=== PATIENT | male | born 1995 | race African-American/Black ===

== ENCOUNTER 2017-12-27 12:46 | Emergency (ER) | payer SELFPAY ==
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
[2017-12-27 15:18] VITALS: TEMP 98.1
[2017-12-27 15:19] VITALS: BP 99/88; O2SAT 99
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
== END 2017-12-27 15:13 | disposition home or self-care (01) ==
LOC: ER 12:46
DX: S00.83XA Contusion of other part of head, initial encounter (principal); S40.012A Contusion of left shoulder, initial encounter; Y04.0XXA Assault by unarmed brawl or fight, initial encounter; Y93.89 Activity, other specified; Y92.9 Unspecified place or not applicable; Y99.9 Unspecified external cause status
CPT/HCPCS: 70450; 72125; 99284

== ENCOUNTER 2018-04-10 17:35 | Emergency (ER) | payer SELFPAY ==
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
--- NOTE | 2018-04-10 18:57 | EDPHYS ---
Physician Documentation [facility] Name: Mauricio Carolina Age: 22 yrs Sex: Male : 1995 Arrival Date: 04/10/2018 Time: 17:39 Bed 18 Private MD: Unknown, Unknown ED Physician Hunter Biggs HPI: 04/10 18:46 This 22 yrs old Black Male presents to ER via Ambulatory with complaints of Passed Out kb Prior To Arrival. 18:46 The patient or guardian reports cough, that is intermittent, described as moderate, kb with no sputum, flu symptoms, low-grade fever. Onset: The symptoms/episode began/occurred yesterday. Severity of symptoms: At their worst the symptoms were moderate, in the emergency department the symptoms are unchanged. Modifying factors: The symptoms are alleviated by nothing, the symptoms are aggravated by nothing. Associated signs and symptoms: Pertinent positives: fever, rhinorrhea, sore throat, Pertinent negatives: chest pain, diarrhea, ear ache, nausea, vomiting. The patient has not experienced similar symptoms in the past. The patient has not recently seen a physician. pt reports fever, sore throat, runny nose, cough and congestion that started yesterday, worse today. Was coughing at work and felt like he was going to pass out so his boss told him to come to the ER. Historical: - Allergies: 17:41 NKA; la1 - PMHx: 17:41 None; la1 - Immunization history:: Adult Immunizations up to date. - Social history:: Smoking status: Patient uses tobacco products, smokes one pack cigarettes per day. - Ebola Screening: : No symptoms or risks identified at this time. ROS: 18:44 Cardiovascular: Negative for chest pain, palpitations, and edema, Abdomen/GI: Negative kb for abdominal pain, nausea, vomiting, diarrhea, and constipation, Back: Negative for injury and pain, : Negative for injury, bleeding, discharge, and swelling, MS/Extremity: Negative for injury and deformity, Skin: Negative for injury, rash, and discoloration, Neuro: Negative for headache, weakness, numbness, tingling, and seizure. 18:44 Constitutional: Positive for fever, malaise, Negative for body aches, chills, fatigue, poor PO intake, weight loss. 18:44 ENT: Positive for rhinorrhea, sinus congestion, sore throat. 18:44 Respiratory: Positive for cough, Negative for dyspnea on exertion, hemoptysis, orthopnea, pleurisy, shortness of breath, sputum production, wheezing. Exam: 18:44 Constitutional: This is a well developed, well nourished patient who is awake, alert, kb and in no acute distress. Head/Face: Normocephalic, atraumatic. Neck: Trachea midline, no thyromegaly or masses palpated, and no cervical lymphadenopathy. Supple, full range of motion without nuchal rigidity, or vertebral point tenderness. No Meningismus. Chest/axilla: Normal chest wall appearance and motion. Nontender with no deformity. No lesions are appreciated. Cardiovascular: Regular rate and rhythm with a normal S1 and S2. No gallops, murmurs, or rubs. Normal PMI, no JVD. No pulse deficits. Respiratory: Lungs have equal breath sounds bilaterally, clear to auscultation and percussion. No rales, rhonchi or wheezes noted. No increased work of breathing, no retractions or nasal flaring. Abdomen/GI: Soft, non-tender, with normal bowel sounds. No distension or tympany. No guarding or rebound. No evidence of tenderness throughout. Skin: Warm, dry with normal turgor. Normal color with no rashes, no lesions, and no evidence of cellulitis. MS/ Extremity: Pulses equal, no cyanosis. Neurovascular intact. Full, normal range of motion. Neuro: Awake and alert, GCS 15, oriented to person, place, time, and situation. Cranial nerves II-XII grossly intact. Motor strength 5/5 in all extremities. Sensory grossly intact. Cerebellar exam normal. Normal gait. 18:44 ENT: Posterior pharynx: Airway: normal, no evidence of obstruction, Tonsils: are normal in appearance, Uvula: normal, midline, swelling, is not appreciated, erythema, that is moderate, exudate, is not appreciated. Vital Signs: 17:42 BP 128 / 83; Pulse 91; Resp 16; Temp 98.0; Pulse Ox 98% on R/A; Weight 102.06 kg; la1 Height 5 ft. 11 in. (180.34 cm); 18:20 BP 125 / 78; Pulse 72; Resp 18; Pulse Ox 100% on R/A; Pain 7/10; em 17:42 Body Mass Index 31.38 (102.06 kg, 180.34 cm) la1 MDM: 17:45 Patient medically screened. kb 18:44 Data reviewed: vital signs, nurses notes. Data interpreted: Pulse oximetry: on room air kb is 98 %. Interpretation: normal. Counseling: I had a detailed discussion with the patient and/or guardian regarding: the historical points, exam findings, and any diagnostic results supporting the discharge/admit diagnosis, lab results, radiology results, the need for outpatient follow up, a family practitioner, to return to the emergency department if symptoms worsen or persist or if there are any questions or concerns that arise at home. 04/10 17:49 Order name: Flu; Complete Time: 18:33 kb 04/10 17:49 Order name: Strep; Complete Time: 18:15 kb 04/10 17:49 Order name: Chest Pa And Lat (2 Views) XRAY; Complete Time: 18:19 kb 04/10 18:15 Order name: Throat Culture EDMS Administered Medications: No medications were administered Disposition: 04/11 11:16 Co-signature as Attending Physician, Hunter Biggs MD. Disposition: 04/10/18 18:56 Discharged to Home. Impression: Acute upper respiratory infection, unspecified. - Condition is Stable. - Discharge Instructions: Upper Respiratory Infection, Adult, [id number]. - Medication Reconciliation Form, Thank You Letter, Antibiotic Education, Prescription Opioid Use, Work release form form. - Follow up: Emergency Department; When: As needed; Reason: Worsening of condition. Follow up: Private Physician; When: 2 - 3 days; Reason: Recheck today's complaints, Continuance of care, Re-evaluation by your physician. Signatures: Dispatcher [employer] EDMS Emily Rodriguez, GORGE OTOLARYNGOLOGY REP-Reuben De La Fuente, SWIFT TENDER SWIFT TENDER em Crow Kelley RN RN Hunter Matthews MD MD Corrections: (The following items were deleted from the chart) 04/10 19:07 18:56 04/10/2018 18:56 Discharged to Home. Impression: Acute upper respiratory em infection, unspecified. Condition is Stable. Forms are Medication Reconciliation Form, Thank You Letter, Antibiotic Education, Prescription Opioid Use. Follow up: Emergency Department; When: As needed; Reason: Worsening of condition. Follow up: Private Physician; When: 2 - 3 days; Reason: Recheck today's complaints, Continuance of care, Re-evaluation by your physician. kb
[2018-04-10 19:17] VITALS: TEMP 98
[2018-04-10 19:19] VITALS: BP 125/78; O2SAT 100
== END 2018-04-10 19:07 | disposition home or self-care (01) ==
LOC: ER 17:35
DX: J06.9 Acute upper respiratory infection, unspecified (principal); F17.210 Nicotine dependence, cigarettes, uncomplicated
CPT/HCPCS: 71046; 87070; 87081; 87804; 99283

== ENCOUNTER 2021-03-23 08:38 | Observation (INO) | payer SELFPAY ==
[2021-03-23 09:24] LABS: Absolute Lymphocytes (CBC) 2.7 K/uL (0.7-4.9); Basophils % 0.6 % (0-1.3); Hematocrit 41.7 % (39.6-49.0); Lymphocytes % 20.1 % (15.3-44.8); MPV 8.8 fL (7.6-11.3); RBC Red Blood Cell Count 4.87 M/uL (4.33-5.43)
[2021-03-23 09:34] LABS: BUN Blood Urea Nitrogen 10 mg/dL (7-18); Bicarbonate 28 mmol/L (21-32); Glucose Level 113 mg/dL (74-106); Potassium 3.8 mmol/L (3.5-5.1); Sodium Level 141 mmol/L (136-145)
--- NOTE | 2021-03-23 09:58 | RAD REPORT ---
EXAM DESCRIPTION: CT - Soft Tissue Neck W/Contr - 03/23/2021 9:25 am CLINICAL HISTORY: Peritonsillar swelling COMPARISON: Head C Spine Mpr Wo Con dated 12/27/2017 TECHNIQUE: During dynamic enhancement using 100 milliliters nonionic IV contrast, axial 5 millimeter thick images of the neck were obtained. All CT scans are performed using dose optimization technique as appropriate and may include automated exposure control or mA/KV adjustment according to patient size. FINDINGS: Limited intracranial exam is unremarkable. Mastoid air cells and partially visualized para nasal sinuses are clear. Mild thickening of the adenoid tissues present. There is a thickened, edemat ous soft palate. Bilateral tonsillar enlargement is present. In the deep lateral margin of the right tonsil there is a 17 millimeter by 13 millimeter abscess. No enhancing pharyngeal mass. Epiglottis is normal. No laryngeal abnormality seen. Patient has bilateral lymphadenopathy. Largest lymph node is present on the right measuring 3.9 x 2.5 cm. No necrotic lymph node. No cervical vertebral abnormality. No disc space narrowing. There is no retropharyngeal abscess or ab normal thickening of the prevertebral soft tissues. IMPRESSION: Bilateral tonsillitis pattern with a 17 x 13 mm right-side peritonsillar abscess. Overall thickening of the pharyngeal tissues with adenoid, bilateral tonsil and soft palate thickenin g. No retropharyngeal abscess. Bilateral reactive cervical lymphadenopathy.
[2021-03-23] MEDS ORDERED: CLINDAMYCIN 600MG/D5W 600 MG/50 ML BAG IV ONE (10:17)
[2021-03-23] MEDS ORDERED: NA CHLORIDE 0.9% 1,000 ML ONE (10:17)
[2021-03-23] MEDS ORDERED: KETOROLAC 30 MG/ML INJ ONE (10:17)
--- NOTE | 2021-03-23 11:16 | ER ---
Nurse's Notes [facility] Name: Mauricio Carolina Age: 25 yrs Sex: Male : 1995 Arrival Date: 03/23/2021 Time: 08:40 Bed 6 Private MD: Diagnosis: Peritonsillar abscess;Acute tonsillitis, unspecified Presentation: 03/23 08:43 Chief complaint: Patient states: "the right side of my neck has been swelling up for aa5 about a week and it's making it hard for me to breathe, the swelling goes up to my right ear and to the top of my mouth". Pt states "I was sick with flu symptoms, cough, congestion, sore throat before this started". 08:43 Coronavirus screen: congestion, cough unrelated to allergies, sore throat. Ebola aa5 Screen: No symptoms or risks identified at this time. Initial Sepsis Screen: Does the patient meet any 2 criteria? No. Patient's initial sepsis screen is negative. Does the patient have a suspected source of infection? No. Patient's initial sepsis screen is negative. Risk Assessment: Do you want to hurt yourself or someone else? Patient reports no desire to harm self or others. Onset of symptoms was February 2021. 08:43 Acuity: TRACY 3 aa5 08:43 Method Of Arrival: Ambulatory aa5 Historical: - Allergies: 08:54 NKA; aa5 - PMHx: 08:54 None; aa5 - PSHx: 08:54 None; aa5 - Immunization history:: Client reports having NOT received the Covid vaccine. - Social history:: Smoking status: Patient reports the use of cigarette tobacco products, smokes one pack cigarettes per day. Screenin:55 Abuse screen: Denies threats or abuse. Nutritional screening: No deficits noted. aa5 Tuberculosis screening: No symptoms or risk factors identified. Fall Risk None identified. Assessment: 08:55 General: Appears uncomfortable, Behavior is calm, cooperative. Pain: Complains of pain aa5 in right side of throat, right side of neck. Neuro: Level of Consciousness is awake, alert, obeys commands, Oriented to person, place, time, situation. Cardiovascular: Patient's skin is warm and dry. Respiratory: Reports cough/congestion Airway is patent Respiratory effort is even, unlabored, Respiratory pattern is regular, symmetrical. GI: Abdomen is round non-distended. : No signs and/or symptoms were reported regarding the genitourinary system. EENT: Reports nasal congestion pain to right side of throat . Derm: Skin is dry, Skin is normal, Skin temperature is warm. Musculoskeletal: Range of motion: intact in all extremities. 09:15 Reassessment: Pt to CT via wheelchair . aa5 09:35 Reassessment: Pt back from CT scan . Neuro: Level of Consciousness is awake, alert, aa5 obeys commands, Oriented to person, place, time, situation. Respiratory: Airway is patent Respiratory effort is even, unlabored, Respiratory pattern is regular, symmetrical. Derm: Skin is dry, Skin is normal, Skin temperature is warm. 10:41 General: Appears comfortable. Neuro: Level of Consciousness is awake, alert, obeys aa5 commands, Oriented to person, place, time, situation. Respiratory: Airway is patent Respiratory effort is even, unlabored, Respiratory pattern is regular, symmetrical. Derm: Skin is dry, Skin is normal, Skin temperature is warm. 11:36 Reassessment: No changes from previously documented assessment. Patient and/or family bp updated on plan of care and expected duration. Pain level reassessed. ADMIT INITIATED FOR PERITONSILLAR ABSCESS. PT SEEN BY ENT. 12:38 Neuro: Level of Consciousness is awake, alert, obeys commands, Oriented to person, aa5 place, time, situation. Respiratory: Airway is patent Respiratory effort is even, unlabored, Respiratory pattern is regular, symmetrical. Derm: Skin is dry, Skin is normal, Skin temperature is warm. Vital Signs: 08:43 BP 141 / 95; Pulse 77; Resp 18 S; Temp 98.9(O); Pulse Ox 99% on R/A; Weight 106.59 kg aa5 (R); Height 5 ft. 11 in. (180.34 cm) (R); 10:01 BP 115 / 71; Pulse 65; Resp 18 S; Pulse Ox 100% on R/A; aa5 11:00 BP 111 / 47; Pulse 61; Resp 17; Pulse Ox 100% ; bp 08:43 Body Mass Index 32.78 (106.59 kg, 180.34 cm) aa5 ED Course: 08:40 Patient arrived in ED. as 08:43 Arm band placed on Patient placed in an exam room, on a stretcher. aa5 08:43 Patient has correct armband on for positive identification. Bed in low position. Call aa5 light in reach. Side rails up X 1. Adult w/ patient. 08:43 Pulse ox on. NIBP on. aa5 08:45 Denis Jimenez MD is Attending Physician. kdr 08:52 Marta Arvizu, RN is Primary Nurse. aa5 08:54 Triage completed. aa5 09:11 Initial lab(s) drawn, by al, sent to lab. Inserted saline lock: 20 gauge in right aa5 antecubital area, using aseptic technique. Blood collected. 09:25 CT Soft Tissue Neck W/contr In Process Unspecified. EDMS 09:43 COVID swab sent to lab. aa5 11:14 Adia Ken MD is Hospitalizing Provider. kdr 11:36 Throat Culture Sent. bp 12:39 No provider procedures requiring assistance completed. Patient admitted, IV remains in aa5 place. Administered Medications: 09:42 Drug: NS 0.9% 1000 ml Route: IV; Rate: 1 bolus; Site: right antecubital; aa5 10:41 Follow up: IV Status: Completed infusion; IV Intake: 1000ml aa5 09:43 Drug: Clindamycin 600 mg Route: IVPB; Infused Over: 30 mins; Site: right antecubital; aa5 10:15 Follow up: Response: No adverse reaction; IV Status: Completed infusion aa5 09:43 Drug: Ketorolac 15 mg Route: IVP; Site: right antecubital; aa5 10:00 Follow up: Response: No adverse reaction aa5 Intake: 10:41 IV: 1000ml; Total: 1000ml. aa5 Outcome: 11:15 Decision to Hospitalize by Provider. kdr 12:38 Admitted to Med/surg accompanied by tech, via wheelchair, with chart, Report called to aa5 DONNY Andrade 12:38 Condition: stable 12:38 Instructed on the need for admit, Demonstrated understanding of instructions. 12:49 Patient left the ED. aa5 Signatures: Dispatcher [employer] EDOR Denis Jimenez MD MD kdr Elizabeth Angel as Marta Arvizu, RN RN aa5 Jovanni Etienne RN RN bp
--- NOTE | 2021-03-23 11:16 | EDPHYS ---
Physician Documentation [facility] Name: Mauricio Carolina Age: 25 yrs Sex: Male : 1995 Arrival Date: 03/23/2021 Time: 08:40 Bed 6 Private MD: ED Physician Denis Jimenez HPI: 03/23 09:09 This 25 yrs old Black Male presents to ER via Ambulatory with complaints of Facial kdr Swelling, Neck Swelling, Ear Pain. 09:09 The patient or guardian complains of pain, that is acute, swelling, tenderness. The kdr symptoms are located on the face, right submandibular area, right sternocleidomastoid, right lateral aspect of neck and right anterior aspect of neck. Onset: The symptoms/episode began/occurred gradually, 1 week(s) ago. Context: The problem was sustained at home, The neck injury/problem resulted from from unknown cause. Associated signs and symptoms: Pertinent positives: Is having trouble swallowing solids and liquids. States he feels he is getting dehydrated. The pain does not radiate. Modifying factors: The symptoms are alleviated by nothing. the symptoms are aggravated by Eating and drinking. Severity of symptoms: At their worst the symptoms were mild, moderate, just prior to arrival, in the emergency department the symptoms are unchanged. The patient has not experienced similar symptoms in the past. The patient has not recently seen a physician. Historical: - Allergies: 08:54 NKA; aa5 - PMHx: 08:54 None; aa5 - PSHx: 08:54 None; aa5 - Immunization history:: Client reports having NOT received the Covid vaccine. - Social history:: Smoking status: Patient reports the use of cigarette tobacco products, smokes one pack cigarettes per day. ROS: 09:11 Constitutional: Negative for fever, chills, and weight loss, Eyes: Negative for injury, kdr pain, redness, and discharge, Cardiovascular: Negative for chest pain, palpitations, and edema, Respiratory: Negative for shortness of breath, cough, wheezing, and pleuritic chest pain, Abdomen/GI: Negative for abdominal pain, nausea, vomiting, diarrhea, and constipation, Back: Negative for injury and pain, : Negative for injury, bleeding, discharge, and swelling, MS/Extremity: Negative for injury and deformity, Skin: Negative for injury, rash, and discoloration, Neuro: Negative for headache, weakness, numbness, tingling, and seizure activity. Psych: Negative for depression, anxiety, suicide ideation, homicidal ideation, and hallucinations, Allergy/Immunology: Negative for hives, rash, and allergies, Endocrine: Negative for neck swelling, polydipsia, polyuria, polyphagia, and marked weight changes, Hematologic/Lymphatic: Negative for swollen nodes, abnormal bleeding, and unusual bruising. 09:11 Neck: Positive for mass, pain with movement, pain at rest, swelling, tenderness, of the right submandibular area, right sternocleidomastoid, right lateral aspect of neck and right anterior aspect of neck. Exam: 09:11 Constitutional: This is a well developed, well nourished patient who is awake, alert, kdr and in no acute distress. Head/Face: Normocephalic, atraumatic. Eyes: Pupils equal round and reactive to light, extra-ocular motions intact. Lids and lashes normal. Conjunctiva and sclera are non-icteric and not injected. Cornea within normal limits. Periorbital areas with no swelling, redness, or edema. Chest/axilla: Normal chest wall appearance and motion. Nontender with no deformity. No lesions are appreciated. Cardiovascular: Regular rate and rhythm with a normal S1 and S2. No gallops, murmurs, or rubs. Normal PMI, no JVD. No pulse deficits. Respiratory: Lungs have equal breath sounds bilaterally, clear to auscultation and percussion. No rales, rhonchi or wheezes noted. No increased work of breathing, no retractions or nasal flaring. Abdomen/GI: Soft, non-tender, with normal bowel sounds. No distension or tympany. No guarding or rebound. No evidence of tenderness throughout. Back: No spinal tenderness. No costovertebral tenderness. Full range of motion. Skin: Warm, dry with normal turgor. Normal color with no rashes, no lesions, and no evidence of cellulitis. MS/ Extremity: Pulses equal, no cyanosis. Neurovascular intact. Full, normal range of motion. Neuro: Awake and alert, GCS 15, oriented to person, place, time, and situation. Cranial nerves II-XII grossly intact. Motor strength 5/5 in all extremities. Sensory grossly intact. Cerebellar exam normal. Normal gait. Psych: Awake, alert, with orientation to person, place and time. Behavior, mood, and affect are within normal limits. 09:11 ENT: Posterior pharynx: Airway: There is considerable swelling from the right peritonsillar area which is impinging on the patency of the airway, Tonsils: enlarged on the right, with erythema, with exudate, Uvula: The uvula is displaced to the left, swelling, that is moderate, that is marked, erythema, that is moderate, peritonsillar mass, is noted on the right, pooling of secretions, is not appreciated. Vital Signs: 08:43 BP 141 / 95; Pulse 77; Resp 18 S; Temp 98.9(O); Pulse Ox 99% on R/A; Weight 106.59 kg aa5 (R); Height 5 ft. 11 in. (180.34 cm) (R); 10:01 BP 115 / 71; Pulse 65; Resp 18 S; Pulse Ox 100% on R/A; aa5 11:00 BP 111 / 47; Pulse 61; Resp 17; Pulse Ox 100% ; bp 08:43 Body Mass Index 32.78 (106.59 kg, 180.34 cm) aa5 MDM: 09:11 Data reviewed: vital signs, nurses notes, lab test result(s), radiologic studies. kdr Counseling: I had a detailed discussion with the patient and/or guardian regarding: the historical points, exam findings, and any diagnostic results supporting the discharge/admit diagnosis, lab results, radiology results, the need for outpatient follow up. 10:12 Physician consultation: Adia Ken MD was called at 10:12, was contacted at 10:12, [facility] regarding consult, need to come to ED to see patient, and will see patient in ED, immediately, shortly. 11:15 Patient medically screened. kdr 03/23 09:03 Order name: CBC with Diff; Complete Time: 09:33 kdr 03/23 09:03 Order name: Chem 7; Complete Time: 09:47 kdr 03/23 09:03 Order name: CT Soft Tissue Neck W/contr; Complete Time: 10:05 kdr 03/23 09:11 Order name: COVID-19 SARS RT PCR (Document "Date of Onset" if Symptomatic); Complete kdr Time: 11:22 03/23 10:07 Order name: Strep; Complete Time: 11:22 kdr 03/23 11:03 Order name: Throat Culture EDMS Administered Medications: 09:42 Drug: NS 0.9% 1000 ml Route: IV; Rate: 1 bolus; Site: right antecubital; aa5 10:41 Follow up: IV Status: Completed infusion; IV Intake: 1000ml aa5 09:43 Drug: Clindamycin 600 mg Route: IVPB; Infused Over: 30 mins; Site: right antecubital; aa5 10:15 Follow up: Response: No adverse reaction; IV Status: Completed infusion aa5 09:43 Drug: Ketorolac 15 mg Route: IVP; Site: right antecubital; aa5 10:00 Follow up: Response: No adverse reaction aa5 Disposition Summary: 03/23/21 11:15 Hospitalization Ordered Hospitalization Status: Observation kdr Provider: Adia Ken Location: Telemetry/MedSurg (observation) kdr Condition: Fair kdr Problem: new kdr Symptoms: have improved kdr Bed/Room Type: Standard kdr Room Assignment: 205(03/23/21 12:19) eb Diagnosis - Peritonsillar abscess kdr - Acute tonsillitis, unspecified kdr Forms: - Medication Reconciliation Form kdr - SBAR form kdr Signatures: Dispatcher [employer] EDMS Denis Jimenez MD MD kdr Marta Arvizu RN RN aa5 Gabby Ramon Corrections: (The following items were deleted from the chart) 12:19 11:15 kdr eb
[2021-03-23] MEDS ORDERED: CODEINE 12mg/APAP 120mg PER 5 ML UCUP PO PRN (11:38)
[2021-03-23] MEDS ORDERED: ACETAMINOPHEN 160 MG/5 ML UCUP PO PRN (11:40)
[2021-03-23] MEDS ORDERED: METHYLPREDNISOLONE 40 MG INJ IV SCH (12:00)
[2021-03-23 13:12] VITALS: O2SAT 100
[2021-03-23] MEDS: D5 0.45 NS 1,000 ML IV SCH ×2 (14:00→22:00)
[2021-03-23] MEDS: METHYLPREDNISOLONE 125 MG INJ IV SCH ×4 (16:00→23:46)
[2021-03-23] MEDS: AMPICILLIN/SULBACT 3 GM in NA CHLORIDE 0.9% 100 ML IVPB SCH ×3 (17:00→23:46)
[2021-03-23 19:30] VITALS: BMI 32.8
--- NOTE | 2021-03-23 22:41 | HP ---
Date of Admission: 03/23/2021 Chief Complaint: Throat pain. History Of Present Illness: The patient is a pleasant 25-year-old male, who presented to the emergen cy room acutely for a 9-day history of worsening odynophagia and dysphagia secondary to throat infect ion. The patient states that he developed significant throat pain approximately 8 to 9 days ago and it has progressively worsened despite Robitussin cough syrup. He did not present to his PCP or Urgen t Care for any antibiotics and presents today with worsening problems with swallowing. He is unable to tolerate liquids or solids without severe throat pain. He denies vomiting, nausea, difficulty andrew athing, cough, or fever. Only other associated symptoms are bilateral otalgia, right worse than left . He also complains of bilateral nasal congestion and postnasal drip. No other ENT complaints today . Past Medical History: None. Past Surgical History: None. Medications: P.r.n. Robitussin DM cough syrup. Allergies: NO KNOWN DRUG ALLERGIES. Social History: The patient smokes daily and has occasional alcohol use. No illicit drugs. Review of Systems: EYES: Denies redness, itching, drainage, blurry/double vision. EARS: Positive for bilateral otalgia. Negative for otorrhea, mastoid tenderness. NOSE: Bilateral nasal congestion and postnasal drip. THROAT: Positive for severe sore throat and odynophagia/dysphagia. NECK: Positive for right neck swelling and tenderness. Physical Examination: CONSTITUTIONAL/VITAL SIGNS: Stable. The patient is afebrile currently and he has normal blood press ure and pulse rate and respirations. EYES: PERRLA/EOMI. EARS: Bilateral external auditory canals with moderate cerumen; bilateral tympanic membranes intact with excellent life reflex. No evidence of mucoid or middle ear effusion. NOSE: Bilateral inferior turbinate hypertrophy 3/4 and clear rhinorrhea. THROAT: Moderate erythema and edema involving the right soft palate. Upon palpation, I did not dete ct any fluctuance to suggest ed abscess. No tonsillar exudate. Uvula is midline. NECK: Right level 1 and 2 lymphadenopathy with enlarged right submandibular gland and tenderness to palpation. Diagnostic Studies: CT scan of soft tissue neck with contrast was reviewed and discussed with the cayetano godfrey. The patient has evidence of right parapharyngeal infection and the inferior pole around the r ight tonsil appears significantly inflamed with possible developing abscess, although I would call it a phlegmon at this point. Right submandibular gland significantly enlarged to suggest sialoadenitis . Diagnosis: 1.Right acute parapharyngeal infection and right sialoadenitis submandibular gland. 2.Bilateral inferior turbinate hypertrophy. Recommendations: 1.Place in 24-hour observation under our ENT Service. 2.Vitals per protocol. 3.May ambulate as tolerated. 4.Start clear fluids - may advance to a soft diet when tolerated. 5.D5 half-normal saline at 100 mL per hour - may Hep-Lock when he tolerates 8 ounces p.o. fluids. 6.Switch from clindamycin to Unasyn 3 g IV piggyback q.6 hours. 7.Start Solu-Medrol taper at 80 mg IV push q.6 hours x3 and then taper down to 60 mg IV push q.6 mychal rs x3 and then 40 mg IV push q.6 hours x3, then 20 mg IV push q.6 hours and do an oral taper from the re. 8.Start fluticasone nasal spray 2 sprays each nostril b.i.d. 9.May take Tylenol with Codeine 120/12/5 mL 20 mL p.o. q.6 hours p.r.n. severe 8-10 pain. 10.May start Tylenol 160/5 mL - 20 mL p.o. q.6 hours p.r.n. moderate 5-7 pain. PACO/STANFORD Voice ID: [id number]
[2021-03-24] MEDS ORDERED: NA CHLORIDE 0.9% 0 ML ONE (00:14)
[2021-03-24] MEDS: AMPICILLIN/SULBACT 3 GM in NA CHLORIDE 0.9% 100 ML IVPB SCH ×2 (05:42→12:00)
[2021-03-24] MEDS: METHYLPREDNISOLONE 125 MG INJ IV SCH ×2 (05:42→12:00)
[2021-03-24] MEDS ORDERED: INFLUENZA VACCINE (for 6+ mo) 0.5 ML DOSE IMVAC ONE (08:00)
[2021-03-24 12:06] VITALS: BP 138/76; TEMP 96.9
[2021-03-25] MEDS ORDERED: METHYLPREDNISOLONE 40 MG INJ IV SCH ×2 (18:00)
--- NOTE | 2021-03-27 03:31 | DS ---
Date of Discharge: 03/24/2021 Discharge Diagnoses: 1.Right parapharyngeal infection with source of infection most likely right tonsil. 2.Right sialadenitis of the submandibular gland. 3.Bilateral inferior turbinate hypertrophy. Discharge Disposition: Stable. Patient was discharged home after he was able to demonstrate, tolera ting fluids and soft diet. Condition: Requiring 24-hour observation: The patient developed acute throat swelling with drooling secondary to right tonsil edema extending into the parapharyngeal space as well as significantly [place] and swollen right submandibular gland and lymphadenitis. Patient was unable to tolerate fluids o rally. Thus, he was placed in 24-hour observation. Hospital Course: Course while in the hospital under observation: The patient received tapering dose of Solu-Medrol starting 80 mg IV push q.6 hours and then tapering down to 60 mg IV push q.6 hours. We also changed his antibiotics from clindamycin to Unasyn 3 g IV piggyback q.6 hours. He reported a t least 80% improvement over the course of 24 hours with regard to odynophagia, dysphagia, whereby he was able to tolerate fluids and soft diet. Pain was controlled with p.r.n. Tylenol with codeine and regular Tylenol. Investigations included a CT scan of the soft tissue neck with contrast, which dem onstrated patent airway, but significant swelling of the parapharyngeal area extending up into the ri ght soft palate and right tonsil and then significant right submandibular gland inflammation with lev el 1 and level 2 right-sided lymphadenitis. No interventions necessary. Allergies: NO KNOWN DRUG ALLERGIES. Discharge Plan: The patient was discharged on 03/24/2021 on amoxicillin/clavulanate 875 mg b.i.d. fo r 10 days as well as a prednisone taper starting at 60 mg and tapering over the course of 7 days. Follow Up Instructions: Follow up instructions for patient: He was given my phone number to call fo r followup in the outpatient setting in 1-2 weeks post discharge, to continue soft diet and advance t o regular diet when able. Patient has unknown primary care physician. PACO/STANFORD Voice ID: [id number] Report ID: [id number]
== END 2021-03-24 13:10 | disposition home or self-care (01) ==
LOC: ER 08:38 → ERHOLD 11:28 → 2ND 12:39
PROVIDERS: ADMIT Otolaryngology Facial Plastic Surgery; ATTEND Otolaryngology Facial Plastic Surgery
DX: J02.9 Acute pharyngitis, unspecified (principal); K11.20 Sialoadenitis, unspecified; J03.90 Acute tonsillitis, unspecified; J34.3 Hypertrophy of nasal turbinates; H92.03 Otalgia, bilateral; F17.210 Nicotine dependence, cigarettes, uncomplicated; Z20.822 Contact with and (suspected) exposure to COVID-19
CPT/HCPCS: 36415; 70491; 80048; 85025; 87070; 87081; 96365; 96375; 99285; G0378; J0295; J2920; J2930; J7030; J7799; Q9967; U0003

== ENCOUNTER 2022-12-05 20:32 | Emergency (ER) | payer SELFPAY ==
--- OUTSIDE RECORDS SUMMARY | 2022-12-05 20:35 | XMS REPORT | Continuity of Care Document ---
:1995 Author Organization [facility] t Address [address] [facility] [address] [place] [id number] Care Team Providers Name Role Phone Pcp, Patient Does Not Have A Primary Care Physician +[id number] MARCY SARMIENTO Attending Clinician Unavailable Marcy Sarmiento MD Attending Clinician EMILE TEJEDA Attending Clinician Unavailable Emile Tejeda DO Attending Clinician Problems Condition Condition Condition Status Onset Resolution Last Treating Co mments Source Name Details Category Date Date Treatment Clinician Date No known No known Disease Unive rs active active ity of problems problems [facility] Allergies, Adverse Reactions, Alerts Allergy Allergy Status Severity Reaction(s) Onset Inactive Treating Comm ents Source Name Type Date Date Clinician NO KNOWN Drug Active Univers ALLERGIE Class ity of S [facility] Social History Social Habit Start Date Stop Date Quantity Comments Source Exposure to 2022-01-12 2022-01-22 Not sure [facility] SARS-CoV-2 (event) 00:00:00 22:43:00 Medica l Branch Sex Assigned At [birth year] [facility] [place] 00:00:00 00:00:00 Medical Branch Smoking Status Start Date Stop Date Source Tobacco smoking consumption Univ [facility] Medical unknown Branch Medications Ordered Filled Start Stop Current Ordering Indication Dosage Frequency Signature Comments Components Source Medication Medication Date Date Medication? Clinician (SIG) Name Name naproxen 2014-0 Yes 550mg Take 1 Tab Un cece sodium 9-29 by mouth 2 ity of (ANAPROX) 00:00: (two) [place] 550 mg 00 times Medical tablet daily with Branch meals. naproxen 2014-0 Yes 550mg Take 1 Tab Un cece sodium 9-29 by mouth 2 ity of (ANAPROX) 00:00: (two) [place] 550 mg 00 times Medical tablet daily with Branch meals. Immunizations Ordered Filled Immunization Date Status Comments [facility] e Immunization Name Name TDAP (ADACEL) 2019-02-17 Completed [facility] VACCINE 00:00:00 [facility] Branch TDAP (ADACEL) 2019-02-17 Completed [facility] VACCINE 00:00:00 [facility] Vital Signs Vital Name Observation Time Observation Value Comments Source Systolic blood 2022-01-23 03:46:00 120 mm[Hg] [facility] Diastolic blood 2022-01-23 03:46:00 90 mm[facility]Hg[facility] 2022-01-23 03:46:00 75 /min [facility] Body temperature 2022-01-23 03:46:00 36.39 Nena [facility] Respiratory rate 2022-01-23 03:46:00 18 /min [facility] Body height 2022-01-23 03:46:00 180.3 cm [facility] Body weight 2022-01-23 03:46:00 100.699 kg [facility] BMI 2022-01-23 03:46:00 30.96 kg/m2 [facility] Oxygen saturation in 2022-01-23 03:46:00 95 /min [facility] Arterial blood by [facility] Pulse oximetry Branch Systolic blood 2021-05-15 15:34:00 128 mm[Hg] [facility]iver [facility] Diastolic blood 2021-05-15 15:34:00 78 mm[Hg] [facility]ive [facility] Heart rate 2021-05-15 15:34:00 106 /min [facility] Body temperature 2021-05-15 15:34:00 38.33 Nena [facility] Respiratory rate 2021-05-15 15:34:00 18 /min [facility] Body height 2021-05-15 15:34:00 180.3 cm Universi ty [facility] Body weight 2021-05-15 15:34:00 99.791 kg Universi ty [facility] BMI 2021-05-15 15:34:00 30.68 kg/m2 [facility] saturation in 2021-05-15 15:34:00 96 /min [facility] Arterial blood by [facility] Pulse oximetry Branch Procedures Procedure Date / Time Performed Performing Clinician Sourc e CONSENT/REFUSAL FOR 2022-01-23 03:08:15 Doctor Unassigned, No [facility] [place] DIAGNOSIS AND Name Medical Branch TREATMENT NOTICE OF PRIVACY 2021-05-15 15:26:30 Doctor Unassigned, No Univ ersity [facility] PRACTICES Name Medical Branch CONSENT/REFUSAL FOR 2021-05-15 15:26:13 Doctor Unassigned, No [facility] [place] DIAGNOSIS AND Name Medical Branch TREATMENT Encounters Start End Encounter Admission Attending Care Care Encounter Source Date/Time Date/Time Type Type Clinicians Facility Department ID 2022-01-22 2022-01-23 Emergency X [facility] ERT [id number] Univers 22:48:00 01:57:00 MARCY crews [facility] 2022-01-22 2022-01-23 [facility] [id number] Univers 22:48:00 01:57:00 Marcy BARBER [id number] ity [facility] [id number] [facility] [id number] [facility] 084 Branch 2021-05-15 2021-05-15 Emergency [facility] [id number] Univers 09:37:00 10:29:00 EMILE crews [facility] 2021-05-15 2021-05-15 Emergency [facility] [id number] Univers 09:37:00 10:29:00 Emile BARBER [id number] i ty [facility] [id number] [facility] [id number] [facility] 084 Branch Results This patient has no known results.
[2022-12-05] MEDS ORDERED: NA CHLORIDE 0.9% 2,000 ML ONE (22:22)
[2022-12-05 22:37] LABS: Absolute Lymphocytes (CBC) 2.3 K/uL (0.7-4.9); Hematocrit 41.2 % (39.6-49.0); MCV 85.8 fL (80-100); MPV 8.5 fL (7.6-11.3)
[2022-12-05 22:56] LABS: Albumin 4.1 g/dL (3.4-5.0); Bilirubin Total 0.5 mg/dL (0.2-1.0); Protein, Total 7.9 g/dL (6.4-8.2); Troponin High Sensitivity 4.7 pg/mL (<58.9)
--- NOTE | 2022-12-05 23:32 | EDPHYS ---
Physician Documentation [facility] Name: Mauricio Carolina Age: 27 yrs Sex: Male : 1995 Arrival Date: 12/05/2022 Time: 20:32 Bed 8 Private MD: ED Physician John Vernon HPI: 12/06 00:02 This 27 yrs old Black Male presents to ER via Ambulatory with complaints of Heat rt Exposure. 00:02 Patient presents to the ED with concerns for dehydration. The patient states that he rt has been working outside, has no AC in his car. He states that he was sweating significantly, ever, he stopped sweating earlier today. He reportedly had an episode of disorientation that is since improved. The patient states that he still feels warm. Denies other acute complaints at this time, symptoms are moderate severity, no other aggravating alleviating factors. Historical: - Allergies: 12/05 21:14 NKA; kd3 - Immunization history:: Adult Immunizations up to date. - Social history:: Smoking status: Patient reports the use of cigarette tobacco products, denies chronic smoking, but will smoke occasionally. - Family history:: not pertinent. ROS: 12/06 00:02 Constitutional: Negative for fever, chills, and weight loss, Cardiovascular: Negative rt for chest pain, palpitations, and edema, Respiratory: Negative for shortness of breath, cough, wheezing, and pleuritic chest pain, Abdomen/GI: Negative for abdominal pain, nausea, vomiting, diarrhea, and constipation, MS/Extremity: Negative for injury and deformity, Skin: Negative for injury, rash, and discoloration, Psych: Negative for depression, anxiety, suicide ideation, homicidal ideation, and hallucinations. Neuro: Positive for near syncope, Negative for altered mental status. Exam: 00:02 Constitutional: This is a well developed, well nourished patient who is awake, alert, rt and in no acute distress. Head/Face: Normocephalic, atraumatic. Chest/axilla: Normal chest wall appearance and motion. Nontender with no deformity. No lesions are appreciated. Cardiovascular: Regular rate and rhythm with a normal S1 and S2. No gallops, murmurs, or rubs. Normal PMI, no JVD. No pulse deficits. Respiratory: Lungs have equal breath sounds bilaterally, clear to auscultation and percussion. No rales, rhonchi or wheezes noted. No increased work of breathing, no retractions or nasal flaring. Abdomen/GI: Soft, non-tender, with normal bowel sounds. No distension or tympany. No guarding or rebound. No evidence of tenderness throughout. Skin: Warm, dry with normal turgor. Normal color with no rashes, no lesions, and no evidence of cellulitis. MS/ Extremity: Pulses equal, no cyanosis. Neurovascular intact. Full, normal range of motion. Neuro: Awake and alert, GCS 15, oriented to person, place, time, and situation. Cranial nerves II-XII grossly intact. Motor strength 5/5 in all extremities. Sensory grossly intact. Cerebellar exam normal. Normal gait. Psych: Awake, alert, with orientation to person, place and time. Behavior, mood, and affect are within normal limits. 00:02 ENT: Dry mucous membranes, OP otherwise benign. 00:02 ECG was reviewed by the Attending Physician. Vital Signs: 12/05 21:12 Pulse 90; Resp 20; Temp 98.2(O); Pulse Ox 98% on R/A; Weight 101.15 kg; Height 5 ft. 11 kd3 in. ; 21:15 BP 132 / 93; kd3 22:32 BP 142 / 84; Pulse 73; Resp 21 S; Pulse Ox 99% on R/A; as6 23:21 BP 116 / 59; Pulse 76; Resp 18 S; Pulse Ox 100% on R/A; as6 21:12 Body Mass Index 31.10 (101.15 kg, 180.34 cm) kd3 MDM: 21:33 Patient medically screened. rt 12/06 00:02 Differential Diagnosis Dehydration, electrolyte disturbance, rhabdomyolysis, renal rt failure. Data reviewed: vital signs, nurses notes. Counseling: I had a detailed discussion with the patient and/or guardian regarding: the historical points, exam findings, and any diagnostic results supporting the discharge/admit diagnosis, lab results, the need for outpatient follow up, to return to the emergency department if symptoms worsen or persist or if there are any questions or concerns that arise at home. 12/05 21:41 Order name: CBC with Diff; Complete Time: 22:48 rt 12/05 20: Order name: CMP; Complete Time: 22:59 rt 12/05 21:41 Order name: Troponin High Sensitivity; Complete Time: 22:59 rt 07 21:41 Order name: CPK; Complete Time: 22:59 rt 12/05 21:41 Order name: EKG; Complete Time: 21:41 rt 07 21:41 Order name: EKG - Nurse/Tech; Complete Time: 22:29 rt EC:02 Rate is 70 beats/min. Rhythm is regular, Normal Sinus Rhythm with No ectopy. QRS [place] rt is Normal. [place] interval is normal. QRS interval is normal. QT interval is normal. No Q waves. T waves are Normal. No ST changes noted. Interpreted by me. Administered Medications: 12/05 22:30 Drug: NS 0.9% IV 1000 ml Route: IV; Rate: 1 bolus; Site: right antecubital; as6 12/06 00:15 Follow up: Response: No adverse reaction; IV Status: Completed infusion; IV Intake: as6 1000ml 12/05 22:30 Drug: NS 0.9% IV 1000 ml Route: IV; Rate: 1 bolus; Site: right antecubital; as6 12/06 00:16 Follow up: Response: No adverse reaction; IV Status: Completed infusion; IV Intake: as6 1000ml Disposition Summary: 12/05/22 23:31 Discharge Ordered Location: Home rt Problem: new rt Symptoms: have improved rt Condition: Stable rt Diagnosis - Dehydration rt Followup: rt - With: Private Physician - When: 5 - 6 days - Reason: Discharge Instructions: - Discharge Summary Sheet rt - Dehydration, Adult rt Forms: - Medication Reconciliation Form rt - Thank You Letter rt - Antibiotic Education rt - Prescription Opioid Use rt - Patient Portal Instructions rt Signatures: Dispatcher [employer] Haim Ryder RN RN as6 Shoshana Andujar RN RN kd3 John Vernon MD MD rt
--- NOTE | 2022-12-05 23:32 | ER ---
Nurse's Notes [facility] Name: Mauricio Carolina Age: 27 yrs Sex: Male : 1995 Arrival Date: 12/05/2022 Time: 20:32 Bed 8 Private MD: Diagnosis: Dehydration Presentation: 12/05 21:15 Chief complaint: Patient states: I feel kind of weird. I feel like i cant cool off and kd3 i feel dizzy and i have a headache and my mouth is dry. I feel off and my family said i was talking weird. I don't feel well. My A/C in my car is broken and i work in the hot sun. Coronavirus screen: Vaccine status: Patient reports being unvaccinated. Ebola Screen: No symptoms or risks identified at this time. Initial Sepsis Screen: Does the patient meet any 2 criteria? No. Patient's initial sepsis screen is negative. Does the patient have a suspected source of infection? No. Patient's initial sepsis screen is negative. Risk Assessment: Do you want to hurt yourself or someone else? Patient reports no desire to harm self or others. Onset of symptoms was December 05, 2022. 21:15 Method Of Arrival: Ambulatory kd3 21:15 Acuity: TRACY 3 kd3 Triage Assessment: 21:14 General: Appears uncomfortable, Behavior is calm, cooperative. Pain: Denies pain. Derm: kd3 No deficits noted. 21:14 Neuro: Reports dizziness. kd3 Historical: - Allergies: 21:14 NKA; kd3 - Immunization history:: Adult Immunizations up to date. - Social history:: Smoking status: Patient reports the use of cigarette tobacco products, denies chronic smoking, but will smoke occasionally. - Family history:: not pertinent. Screenin:31 [facility] ED Fall Risk Assessment (Adult) Score/Fall Risk Level 0 - 2 = Low Risk. Abuse as6 screen: Denies threats or abuse. Denies injuries from another. Nutritional screening: No deficits noted. Tuberculosis screening: No symptoms or risk factors identified. Assessment: 22:30 General: Appears in no apparent distress. Behavior is calm, cooperative. Pain: as6 Complains of pain in head Quality of pain is described as aching. Neuro: Level of Consciousness is awake, alert, obeys commands, Oriented to person, place, time, situation, Reports headache. Cardiovascular: No deficits noted. Respiratory: Respiratory effort is even, unlabored, Respiratory pattern is regular, symmetrical. 23:48 General: discharge pending fluid completion . as6 Vital Signs: 21:12 Pulse 90; Resp 20; Temp 98.2(O); Pulse Ox 98% on R/A; Weight 101.15 kg; Height 5 ft. 11 kd3 in. ; 21:15 BP 132 / 93; kd3 22:32 BP 142 / 84; Pulse 73; Resp 21 S; Pulse Ox 99% on R/A; as6 23:21 BP 116 / 59; Pulse 76; Resp 18 S; Pulse Ox 100% on R/A; as6 21:12 Body Mass Index 31.10 (101.15 kg, 180.34 cm) kd3 ED Course: 20:35 Patient arrived in ED. kj1 20:35 John Vernon MD is Attending Physician. rt 21:16 Triage completed. kd3 21:16 Arm band placed on left wrist. kd3 22:29 Haim Delgado, DONNY is Primary Nurse. as6 22:30 Inserted saline lock: 20 gauge in right antecubital area, using aseptic technique. as6 Blood collected. 22:32 Bed in low position. Call light in reach. Side rails up X 1. as6 23:48 No provider procedures requiring assistance completed. as6 12/06 00:16 Provided Education on: discharge teaching. as6 00:16 IV discontinued, intact, bleeding controlled, No redness/swelling at site. Pressure as6 dressing applied. Administered Medications: 12/05 22:30 Drug: NS 0.9% IV 1000 ml Route: IV; Rate: 1 bolus; Site: right antecubital; as6 12/06 00:15 Follow up: Response: No adverse reaction; IV Status: Completed infusion; IV Intake: as6 1000ml 12/05 22:30 Drug: NS 0.9% IV 1000 ml Route: IV; Rate: 1 bolus; Site: right antecubital; as6 12/06 00:16 Follow up: Response: No adverse reaction; IV Status: Completed infusion; IV Intake: as6 1000ml Medication: 12/05 22:32 VIS not applicable for this client. as6 Intake: 12/06 00:15 IV: 1000ml; Total: 1000ml. as6 00:16 IV: 1000ml; Total: 2000ml. as6 Outcome: 12/05 23:31 Discharge ordered by . rt 23:48 Condition: stable as6 12/06 00:16 Discharged to home ambulatory. as6 Discharge instructions given to patient, Instructed on discharge instructions, follow up and referral plans. Demonstrated understanding of instructions, follow-up care. 00:16 Patient left the ED. as6 Signatures: Nicolette Rodriguez kj1 Haim Delgado RN RN as6 Shoshana Andujar RN RN kd3 John Vernon MD MD rt
[2022-12-06 01:07] VITALS: TEMP 98.2
[2022-12-06 01:10] VITALS: BP 116/59; O2SAT 100
--- NOTE | 2022-12-07 11:46 | EKG ---
Test Date: 2022-12-05 Test Time: 22:17:07 Sheriff Officer: MEASUREMENT RESULTS: Intervals: Rate: 70 WI: 198 QRSD: 88 QT: 372 QTc: 401 P[place]iar: P: 68 WI: 198 QRS: 65 T: 20 INTERPRETIVE STATEMENTS: Normal sinus rhythm with sinus arrhythmia Normal ECG Compared to ECG 05/17/2016 19:16:43 Sinus bradycardia no longer present Early repolarization no longer present Electronically Signed On 12-07-22 11:44:07 CDT by Ayad Bray
== END 2022-12-06 00:16 | disposition home or self-care (01) ==
LOC: ER 20:32
DX: E86.0 Dehydration (principal); F17.210 Nicotine dependence, cigarettes, uncomplicated
CPT/HCPCS: 36415; 80053; 82550; 84484; 85025; 93005; 96360; 96361; 99284; J7030

== ENCOUNTER 2023-01-14 16:10 | Emergency (ER) | payer OTHER, SELFPAY ==
--- OUTSIDE RECORDS SUMMARY | 2023-01-14 16:14 | XMS REPORT | Continuity of Care Document ---
:1995 Author Organization [facility] t Address [address] [facility] [address] [facility] [address] [place] [address] Care Team Providers Name Role Phone Pcp, [...] rs active active ity of problems problems [facility] Allergies, Adverse Reactions, Alerts Allergy Allergy Status Severity Reaction(s) Onset Inactive Treating Comm ents Source Name Type Date Date Clinician NO KNOWN Drug Active Univers ALLERGIE Class [facility] [place] [facility] Social History Social Habit Start Date Stop Date Quantity Comments Source Exposure to 2022-01-12 2022-01-22 Not sure [facility] SARS-CoV-2 (event) 00:00:00 22:43:00 Medica l Branch Sex Assigned At [birth year] [facility] 00:00:00 00:00:00 Medical Branch Smoking Status Start Date Stop Date Source Tobacco smoking consumption Univ [facility] Medical unknown Branch Medications Ordered Filled Start Stop Current Ordering Indication Dosage Frequency Signature Comments Components Source Medication Medication Date Date Medication? Clinician (SIG) Name Name naproxen 2014- Yes 550mg Take 1 Tab Un cece [...] Immunizations Ordered Filled Immunization Date Status Comments [facility] e Immunization Name Name TDAP (ADACEL) 2019-02-17 Completed [place] [facility] VACCINE 00:00:00 [facility] TDAP (ADACEL) 2019-02-17 Completed [facility] VACCINE 00:00:00 [facility] Vital Signs Vital Name Observation Time Observation Value Comments Source Systolic blood 2022-01-23 03:46:00 120 mm[Hg] Univer sity of [facility] Diastolic blood 2022-01-23 03:46:00 90 mm[Hg] [facility] rate 2022-01-23 03:46:00 75 /min [facility] Body temperature 2022-01-23 03:46:00 36.39 [facility] Respiratory rate 2022-01-23 03:46:00 18 /[facility] Body height 2022-01-23 03:46:00 180.3 cm [facility] Body weight 2022-01-23 03:46:00 100.699 kg [facility] BMI 2022-01-23 03:46:00 30.96 kg/m2 [facility] Oxygen saturation in 2022-01-23 03:46:00 95 /min [facility] Arterial blood by [facility] Pulse oximetry Branch Systolic blood 2021-05-15 15:34:00 128 mm[Hg] Univer sity [facility] Diastolic blood 2021-05-15 15:34:00 78 mm[Hg] Unive rsity [facility] Heart rate 2021-05-15 15:34:00 106 /min [facility] Body temperature 2021-05-15 15:34:00 38.33 [facility] Respiratory rate 2021-05-15 15:34:00 18 /min [facility] Body height 2021-05-15 15:34:00 180.3 cm Universi ty [facility] Body weight 2021-05-15 15:34:00 99.791 [facility] BMI 2021-05-15 15:34:00 30.68 kg/m2 [facility] Oxygen saturation in 2021-05-15 15:34:00 96 /min [facility] Arterial blood by [facility] Pulse oximetry Branch Procedures Procedure Date / Time Performed Performing Clinician Sour e CONSENT/REFUSAL FOR 2022-01-23 03:08:15 Doctor Unassigned, No [facility] [place] [facility] AND Name Medical Branch TREATMENT NOTICE OF PRIVACY 2021-05-15 15:26:30 Doctor Unassigned, No Univ ersity [facility] Name Medical Branch CONSENT/REFUSAL FOR 2021-05-15 15:26:13 Doctor Unassigned, No [facility] [place] DIAG[facility] AND Name Medical Branch TREATMENT Encounters Start End Encounter Admission Attending Care Care Encounter Source Date/Time Date/Time Type Type Clinicians Facility Department ID 2022-01-22 2022-01-23 Emergency [facility] [id number] Univers 22:48:00 01:57:00 MARCY crews [facility] 2022-01-22 2022-01-23 Emergency [facility] [id number] Univers 22:48:00 01:57:00 Marcy BARBER [id number] ity [facility] [id number] [facility] [id number] [place] [id number] Branch 2021-05-15 2021-05-15 [facility] [id number] Univers 09:37:00 10:29:00 EMILE crews [facility] 2021-05-15 2021-05-15 [facility] [id number] Univers 09:37:00 10:29:00 Emile BARBER [id number] i ty [facility] [id number] [facility] [id number] Medi manuel 084 Branch Results This patient has no known results.
--- NOTE | 2023-01-14 17:20 | ER ---
Nurse's Notes [facility] Name: Mauricio Carolina Age: 27 yrs Sex: Male : 1995 Arrival Date: 01/14/2023 Time: 16:10 Bed 10 Private MD: Diagnosis: Acute pharyngitis, unspecified;Other urethritis;Unspecified sexually transmitted disease Presentation: 01/14 16:26 Chief complaint: Headache, nausea, sore throat, testicular pain, burning with hb urination, and green drainage from penis since this morning. Pt concerned about STD. Coronavirus screen: At this time, the client does not indicate any symptoms associated with coronavirus-19. Ebola Screen: No symptoms or risks identified at this time. Initial Sepsis Screen: Does the patient meet any 2 criteria? No. Patient's initial sepsis screen is negative. Does the patient have a suspected source of infection? No. Patient's initial sepsis screen is negative. Risk Assessment: Do you want to hurt yourself or someone else? Patient reports no desire to harm self or others. Onset of symptoms was January 14, 2023. 16:26 Method Of Arrival: Ambulatory hb 16:26 Acuity: TRACY 4 hb Historical: - Allergies: 16:28 NKA; hb - Home Meds: 16:28 None [Active]; hb - PMHx: 16:28 None; hb - PSHx: 16:28 None; hb - Immunization history:: Adult Immunizations up to date. - Social history:: Smoking status: Patient denies any tobacco usage or history of. Screenin:02 [facility] ED Fall Risk Assessment (Adult) History of falling in the last 3 months, kc6 including since admission No falls in past 3 months (0 pts) Confusion or Disorientation No (0 pts) Intoxicated or Sedated No (0 pts) Impaired Gait No (0 pts) Mobility Assist Device Used No (0 pt) Altered Elimination No (0 pt) Score/Fall Risk Level 0 - 2 = Low Risk. Abuse screen: Denies threats or abuse. Denies injuries from another. Nutritional screening: No deficits noted. Tuberculosis screening: No symptoms or risk factors identified. Assessment: 17:03 General: Appears in no apparent distress. comfortable, Behavior is cooperative, kc6 appropriate for age, anxious. Neuro: Level of Consciousness is awake, alert, obeys commands, Oriented to person, place, time, situation, Appropriate for age. Cardiovascular: Capillary refill < 3 seconds. Respiratory: Airway is patent Trachea midline Respiratory effort is even, unlabored, Respiratory pattern is regular, symmetrical. GI: Reports nausea, Patient currently denies abdominal pain, diarrhea, vomiting. : Reports burning with urination, discharge, green, Scrotal pain: sudden onset urinary frequency. EENT: No signs and/or symptoms were reported regarding the EENT system. Derm: No signs and/or symptoms reported regarding the dermatologic system. Skin is intact, is healthy with good turgor, Skin is pink, warm \T\ dry. Musculoskeletal: No signs and/or symptoms reported regarding the musculoskeletal system. Circulation, motion, and sensation intact. Capillary refill < 3 seconds, Range of motion: intact in all extremities. Vital Signs: 16:26 BP 145 / 99; Pulse 82; Resp 16; Temp 98.1(O); Pulse Ox 99% on R/A; Weight 107.05 kg; hb Height 5 ft. 11 in. ; Pain 6/10; 16:26 Body Mass Index 32.91 (107.05 kg, 180.34 cm) hb 16:26 Pain Scale: Adult hb [place] Coma Score: 17:10 Eye Response: spontaneous(4). Motor Response: obeys commands(6). Verbal Response: dagmar oriented(5). Total: 15. ED Course: 16:14 Patient arrived in ED. mg5 16:18 Nish Herrera MD is Attending Physician. dagmar 16:28 Triage completed. hb 16:29 Arm band placed on. hb 17:02 Danyelle Lim, RN is Primary Nurse. kc6 17:02 Patient has correct armband on for positive identification. Bed in low position. Call kc6 light in reach. Side rails up X 1. 17:41 No provider procedures requiring assistance completed. Patient did not have IV access kc6 during this emergency room visit. Administered Medications: 17:25 Drug: Rocephin (cefTRIAXone) IM 1 grams Route: IM; Site: left deltoid; kc6 17:38 Follow up: Response: No adverse reaction kc6 17:25 Drug: Doxycycline PO 200 mg Route: PO; kc6 17:38 Follow up: Response: No adverse reaction kc6 17:25 Drug: AZITHromycin PO 1 grams Route: PO; kc6 17:38 Follow up: Response: No adverse reaction kc6 Medication: 17:41 VIS not applicable for this client. kc6 Outcome: 17:19 Discharge ordered by . dagmar 17:41 Discharged to home ambulatory. kc6 17:41 Condition: stable 17:41 Discharge instructions given to patient, Instructed on discharge instructions, follow up and referral plans. medication usage, safe sex practices, Demonstrated understanding of instructions, follow-up care, medications, Prescriptions given X 2. 17:41 Patient left the ED. kc6 Signatures: Nish Herrera MD MD cha Baxter, Heather, RN RN Danyelle Jacobs RN RN [email or web address] Juliana Donahue mg5 Corrections: (The following items were deleted from the chart) 17:04 17:03 GI: Reports nausea, mello kc6
--- NOTE | 2023-01-14 17:20 | EDPHYS ---
Physician Documentation [facility] Name: Mauricio Carolina Age: 27 yrs Sex: Male : 1995 Arrival Date: 01/14/2023 Time: 16:10 Bed 10 Private MD: ED Physician Nish Herrera HPI: 01/14 17:09 This 27 yrs old Black Male presents to ER via Ambulatory with complaints of Difficulty dagmar Swallowing, Green Discharge, Headache. 17:09 The patient presents with sore throat. The patient describes throat pain as constant, dagmar raw. Onset: The symptoms/episode began/occurred 3 day(s) ago. Severity of symptoms: At their worst the symptoms were moderate, in the emergency department the symptoms are unchanged. Modifying factors: The symptoms are alleviated by nothing, the symptoms are aggravated by swallowing, Patient's oral intake status: good. Associated signs and symptoms: The patient has no apparent associated signs or symptoms. The patient has not experienced similar symptoms in the past. Historical: - Allergies: 16:28 NKA; hb - Home Meds: 16:28 None [Active]; hb - PMHx: 16:28 None; hb - PSHx: 16:28 None; hb - Immunization history:: Adult Immunizations up to date. - Social history:: Smoking status: Patient denies any tobacco usage or history of. ROS: 17:10 Constitutional: Negative for fever, chills, and weight loss, Eyes: Negative for injury, dagmar pain, redness, and discharge, Neck: Negative for injury, pain, and swelling, Cardiovascular: Negative for chest pain, palpitations, and edema, Respiratory: Negative for shortness of breath, cough, wheezing, and pleuritic chest pain, Abdomen/GI: Negative for abdominal pain, nausea, vomiting, diarrhea, and constipation, Back: Negative for injury and pain, MS/Extremity: Negative for injury and deformity, Skin: Negative for injury, rash, and discoloration, Neuro: Negative for headache, weakness, numbness, tingling, and seizure, Psych: Negative for depression, anxiety, suicide ideation, homicidal ideation, and hallucinations, Allergy/Immunology: Negative for hives, rash, and allergies, Endocrine: Negative for neck swelling, polydipsia, polyuria, polyphagia, and marked weight changes, Hematologic/Lymphatic: Negative for swollen nodes, abnormal bleeding, and unusual bruising. 17:10 ENT: Positive for difficulty swallowing, sore throat. 17:10 : Positive for burning with urination, penile discharge. Exam: 17:10 Constitutional: This is a well developed, well nourished patient who is awake, alert, dagmar and in no acute distress. Head/Face: Normocephalic, atraumatic. Eyes: Pupils equal round and reactive to light, extra-ocular motions intact. Lids and lashes normal. Conjunctiva and sclera are non-icteric and not injected. Cornea within normal limits. Periorbital areas with no swelling, redness, or edema. Neck: Trachea midline, no thyromegaly or masses palpated, and no cervical lymphadenopathy. Supple, full range of motion without nuchal rigidity, or vertebral point tenderness. No Meningismus. Chest/axilla: Normal chest wall appearance and motion. Nontender with no deformity. No lesions are appreciated. Cardiovascular: Regular rate and rhythm with a normal S1 and S2. No gallops, murmurs, or rubs. Normal PMI, no JVD. No pulse deficits. Respiratory: Lungs have equal breath sounds bilaterally, clear to auscultation and percussion. No rales, rhonchi or wheezes noted. No increased work of breathing, no retractions or nasal flaring. Abdomen/GI: Soft, non-tender, with normal bowel sounds. No distension or tympany. No guarding or rebound. No evidence of tenderness throughout. Back: No spinal tenderness. No costovertebral tenderness. Full range of motion. Skin: Warm, dry with normal turgor. Normal color with no rashes, no lesions, and no evidence of cellulitis. MS/ Extremity: Pulses equal, no cyanosis. Neurovascular intact. Full, normal range of motion. Neuro: Awake and alert, GCS 15, oriented to person, place, time, and situation. Cranial nerves II-XII grossly intact. Motor strength 5/5 in all extremities. Sensory grossly intact. Cerebellar exam normal. Normal gait. Psych: Awake, alert, with orientation to person, place and time. Behavior, mood, and affect are within normal limits. 17:10 ENT: Posterior pharynx: Tonsils: with erythema, Uvula: erythema, swelling, that is mild, erythema, that is mild, exudate, is not appreciated, peritonsillar mass, is not appreciated, pooling of secretions, is not appreciated. 17:10 : CVA tenderness, is absent, Male external genitalia: Circumcision noted. penile discharge, green, Sexual behavior: the patient is sexually active, and reports multiple partners. Vital Signs: 16:26 BP 145 / 99; Pulse 82; Resp 16; Temp 98.1(O); Pulse Ox 99% on R/A; Weight 107.05 kg; hb Height 5 ft. 11 in. ; Pain 6/10; 16:26 Body Mass Index 32.91 (107.05 kg, 180.34 cm) hb 16:26 Pain Scale: Adult hb [place] Coma Score: 17:10 Eye Response: spontaneous(4). Motor Response: obeys commands(6). Verbal Response: dagmar oriented(5). Total: 15. MDM: 16:19 Patient medically screened. dagmar 17:16 Differential diagnosis: UTI, prostatitis, urethritis, chlamydia pharyngitis, neisseria dagmar gonorrheoeae pharangitis, Mycoplasma Pharyngitis pharyngitis. Data reviewed: vital signs, nurses notes. Consideration of Admission/Observation Escalation of care including admission/observation considered. I considered the following discharge prescriptions or medication management in the emergency department Medications were administered in the Emergency Department. See MAR. Test considered but Not performed: Labs: no labs. Care significantly affected by the following chronic conditions: no hx. Administered Medications: 17:25 Drug: Rocephin (cefTRIAXone) IM 1 grams Route: IM; Site: left deltoid; kc6 17:38 Follow up: Response: No adverse reaction [facility] 17:25 Drug: Doxycycline PO 200 mg Route: PO; kc6 17:38 Follow up: Response: No adverse reaction 6 17:25 Drug: AZITHromycin PO 1 grams Route: PO; kc6 17:38 Follow up: Response: No adverse reaction 6 Disposition Summary: 01/14/23 17:19 Discharge Ordered Location: Home dagmar Problem: new dagmar Symptoms: have improved dagmar Condition: Stable dagmar Diagnosis - Acute pharyngitis, unspecified dagmar - Other urethritis dagmar - Unspecified sexually transmitted disease dagmar Followup: dagmar - With: Private Physician - When: 2 - 3 days - Reason: Recheck today's complaints, Continuance of care, Re-evaluation by your physician Discharge Instructions: - Discharge Summary Sheet dagmar - Pharyngitis dagmar - Sore Throat dagmar - Urethritis, Adult dagmar - Pharyngitis, [id number] dagmar - Sore Throat, [id number] [facility] Forms: - Medication Reconciliation Form [facility] - Thank You Letter dagmar - Antibiotic Education dagmar - Prescription Opioid Use dagmar - Patient Portal Instructions [facility] - Leadership Thank You Letter [facility] Prescriptions: - Doxycycline Hyclate 100 mg Oral Tablet - take 1 tablet by ORAL route every 12 hours; 20 tablet; Refills: 0, Product [facility] Selection Permitted - Cipro 500 mg Oral Tablet - take 1 tablet by ORAL route every 12 hours for 7 days; 14 tablet; Refills: 0, [facility] Product Selection Permitted Signatures: Nish Herrera MD MD cha Baxter, Heather, RN RN Danyelle Jacobs RN RN kc6
[2023-01-14] MEDS ORDERED: CEFTRIAXONE 1000 MG/VIAL ONE (17:29)
[2023-01-14] MEDS ORDERED: AZITHROMYCIN 250 MG TAB ONE (17:29)
[2023-01-14] MEDS ORDERED: DOXYCYCLINE 100 MG CAP PO ONE (17:29)
[2023-01-14] MEDS ORDERED: LIDOCAINE 1% MPF 2 ML AMPULE ONE (17:29)
[2023-01-14 17:47] VITALS: BP 145/99; TEMP 98.1; O2SAT 99
== END 2023-01-14 17:41 | disposition home or self-care (01) ==
LOC: ER 16:10
DX: J02.9 Acute pharyngitis, unspecified (principal); N34.2 Other urethritis; A64 Unspecified sexually transmitted disease
CPT/HCPCS: 96372; 99284; J0696

== ENCOUNTER 2023-04-28 09:50 | Emergency (ER) | payer OTHER ==
--- OUTSIDE RECORDS SUMMARY | 2023-04-28 09:53 | XMS REPORT | Continuity of Care Document ---
Author Name Unknown Address [address] [facility] [place] [address] [facility] thconnect Address [address] [facility] [place] [address] Care Team Providers Care Shop Welder Name Role Phone PCP, PATIENT DOES NOT HAVE A Primary Care Physic forrest Unavailable Franchesca JOSE Attending Clinician Unavailable Franchesca Acosta Attending Clinician [phone] MARCY SARMIENTO Attending Clinician Unavailable Marcy Sarmiento MD Attending Clinician [phone] EMILE TEJEDA Attending Clinician Unavailable Emile Tejeda DO Attending Clinician [phone] Payers Payer Name Policy Type Policy Number Effective Date Expirati on Date Source HIM CATIE FROM [facility] [id number] 2022 00:00:00 Problems Condition Name Condition Details Condition Category Status Onset Date Resolution Date Last Treatment Date Treating Clinician Comments Source No known active problems No known active problems Disease [facility] Allergies, Adverse Reactions, Alerts Allergy Name Allergy Type Status Severity Reaction(s) Onset Date Inactive Date Treating Clinician Comments Source NO KNOWN ALLERGIE S Drug Class Active [facility] Social History Social Habit Start Date Stop Date Quantity Comments Source Sexual orientation U [facility] Exposure to SARS-CoV-2 (event) 2022-01-12 00:00:00 2022-01-22 22:43:00 Not sure [facility] Sex Assigned At 1995 00:00:00 1995 00:00:00 [facility] Smoking Status Start Date Stop Date Source Tobacco smoking consumption unknown [facility] Medications Ordered Medication Name Filled Medication Name Start Date Stop Date Current Medication? Ordering Clinician Indication Dosage Frequency Signature (SIG) Comments Components Source naproxen (NAPROSYN) 500 mg tablet 02-14 00:00: 00 Yes [id number] 500mg Take 1 tablet by mouth in the morning and 1 tablet in the evening. Take with meals. [facility] naproxen sodium (ANAPROX) 550 mg tablet 02-19 00:00: 00 Yes 550mg Take 1 Tab by mouth 2 (two) times daily with meals. [facility] naproxen sodium (ANAPROX) 550 mg tablet 02-19 00:00: 00 Yes 550mg Take 1 Tab by mouth 2 (two) times daily with meals. [facility] naproxen sodium (ANAPROX) 550 mg tablet 02-19 00:00: 00 Yes 550mg Take 1 Tab by mouth 2 (two) times daily with meals. [facility] Immunizations Ordered Immunization Name Filled Immunization Name Date Status Comments Source TDAP (ADACEL) VACCINE 2019-02-17 00:00:00 Completed [facility] TDAP (ADACEL) VACCINE 2019-02-17 00:00:00 Completed [facility] TDAP (ADACEL) VACCINE Unknown Completed [facility] Vital Signs Vital Name Observation Time Observation Value Comments S eunice Systolic blood pressure 2023-02-14 13:30:00 143 mm[Hg] [place] [facility] Diastolic blood pressure 2023-02-14 13:30:00 87 mm[Hg] [place] [facility] Heart rate 2023-02-14 13:30:00 72 /min [facility] Body temperature 2023-02-14 13:30:00 36.83 Nena [facility] Respiratory rate 2023-02-14 13:30:00 16 /min [facility] Body height 2023-02-14 13:30:00 180.3 cm [facility] Body weight 2023-02-14 13:30:00 114.76 kg [facility] BMI 2023-02-14 13:30:00 35.29 kg/m2 [facility] Oxygen saturation in Arterial blood by Pulse oximetry 2023-02-14 13:30:00 97 /min [facility] Systolic blood pressure 2022-01-23 03:46:00 120 mm[Hg] [facility] Diastolic blood pressure 2022-01-23 03:46:00 90 mm[Hg] [facility] Heart rate 2022-01-23 03:46:00 75 /min Unive [facility] Body temperature 2022-01-23 03:46:00 36.39 Nena [facility] Respiratory rate 2022-01-23 03:46:00 18 /min [facility] Body height 2022-01-23 03:46:00 180.3 cm [facility] Body weight 2022-01-23 03:46:00 100.699 kg [facility] BMI 2022-01-23 03:46:00 30.96 kg/m2 [facility] Oxygen saturation in Arterial blood by Pulse oximetry 2022-01-23 03:46:00 95 /min [facility] Systolic blood pressure 2021-05-15 15:34:00 128 mm[Hg] [facility] Diastolic blood pressure 2021-05-15 15:34:00 78 mm[Hg] [facility] Heart rate 2021-05-15 15:34:00 106 /min [facility] Body temperature 2021-05-15 15:34:00 38.33 Nena [facility] Respiratory rate 2021-05-15 15:34:00 18 /min [facility] Body height 2021-05-15 15:34:00 180.3 cm [facility] Body weight 2021-05-15 15:34:00 99.791 kg [facility] BMI 2021-05-15 15:34:00 30.68 kg/m2 [facility] Oxygen saturation in Arterial blood by Pulse oximetry 2021-05-15 15:34:00 96 /min [facility] Procedures Procedure Date / Time Performed Performing Clinicia n Source ASSIGNMENT OF BENEFITS 2023-02-14 14:53:54 Docto r Unassigned, [facility] RAPID STREP SCREEN FOR GROUP A 2023-02-14 14:32:00 Franchesca Jose [facility] CONSENT/REFUSAL FOR DIAGNOSIS AND TREATMENT 2023-02-14 13:27:43 Doctor Unassigned, [facility] CONSENT/REFUSAL FOR DIAGNOSIS AND TREATMENT 2022-01-23 03:08:15 Doctor Unassigned, [facility] NOTICE OF PRIVACY PRACTICES 2021-05-15 15:26:30 Doctor Unassigned, [facility] CONSENT/REFUSAL FOR DIAGNOSIS AND TREATMENT 2021-05-15 15:26:13 Doctor Unassigned, [facility] Encounters Start Date/Time End Date/Time Encounter Type Admission Type Attending [facility] Care Facility Care Department Encounter ID Source 2023-02-14 08:34:00 2023-02-14 11:00:00 Emergency X REBECA Franchesca [facility] ERT [id number] [facility] 2023-02-14 08:34:00 2023-02-14 11:00:00 Emergency RebecaFranchesca Doris [facility] [id number] [facility] 2022-01-22 22:48:00 2022-01-23 01:57:00 Emergency X MARCY SARMIENTO [facility] ERT [id number] [facility] 2022-01-22 22:48:00 2022-01-23 01:57:00 Emergency Marcy Sarmiento [facility] [id number] [facility] 2021-05-15 09:37:00 2021-05-15 10:29:00 Emergency X CONCHA TEJEDAIP [facility] ERT [id number] [facility] 2021-05-15 09:37:00 2021-05-15 10:29:00 Emergency Emile Tejeda [facility] [id number] [facility]
[2023-04-28] MEDS ORDERED: IBUPROFEN 400 MG TAB ONE (10:50)
--- NOTE | 2023-04-28 12:11 | EDPHYS ---
Physician Documentation [facility] Name: Mauricio Carolina Age: 27 yrs Sex: Male : 1995 Arrival Date: 04/28/2023 Time: 09:50 Bed 18 Private MD: ED Physician John Vernon HPI: 04/28 10:19 This 27 yrs old Black Male presents to ER via Ambulatory with complaints of Flu rt Symptoms. 10:19 Patient presents to the ED with cough, congestion, body aches, generalized malaise rt starting yesterday afternoon. He did take TheraFlu last night for his symptoms, did improve, however, the symptoms worsened today prompting to come for further evaluation. Denies difficulty breathing, denies other acute complaints, symptoms are mild in severity, no other aggravating or alleviating factors.. Historical: - Allergies: 10:03 NKA; db - PSHx: 10:03 right arm surgery; db - Immunization history:: Adult Immunizations unknown. - Social history:: Smoking status: Patient denies any tobacco usage or history of. - Family history:: not pertinent, pertinent for. ROS: 10:19 Cardiovascular: Negative for chest pain, palpitations, and edema, Abdomen/GI: Negative rt for abdominal pain, nausea, vomiting, diarrhea, and constipation, MS/Extremity: Negative for injury and deformity, Skin: Negative for injury, rash, and discoloration, Neuro: Negative for headache, weakness, numbness, tingling, and seizure, Psych: Negative for depression, anxiety, suicide ideation, homicidal ideation, and hallucinations, 10:19 Constitutional: Positive for body aches, chills, malaise, 10:19 ENT: Positive for rhinorrhea, sore throat, 10:19 Respiratory: Positive for cough, Negative for shortness of breath, Exam: 10:19 Constitutional: This is a well developed, well nourished patient who is awake, alert, rt and in no acute distress. Head/Face: Normocephalic, atraumatic. Neck: Trachea midline, no thyromegaly or masses palpated, and no cervical lymphadenopathy. Supple, full range of motion without nuchal rigidity, or vertebral point tenderness. No Meningismus. Chest/axilla: Normal chest wall appearance and motion. Nontender with no deformity. No lesions are appreciated. Cardiovascular: Regular rate and rhythm with a normal S1 and S2. No gallops, murmurs, or rubs. Normal PMI, no JVD. No pulse deficits. Respiratory: Lungs have equal breath sounds bilaterally, clear to auscultation and percussion. No rales, rhonchi or wheezes noted. No increased work of breathing, no retractions or nasal flaring. Abdomen/GI: Soft, non-tender, with normal bowel sounds. No distension or tympany. No guarding or rebound. No evidence of tenderness throughout. Skin: Warm, dry with normal turgor. Normal color with no rashes, no lesions, and no evidence of cellulitis. MS/ Extremity: Pulses equal, no cyanosis. Neurovascular intact. Full, normal range of motion. Neuro: Awake and alert, GCS 15, oriented to person, place, time, and situation. Cranial nerves II-XII grossly intact. Motor strength 5/5 in all extremities. Sensory grossly intact. Cerebellar exam normal. Normal gait. Psych: Awake, alert, with orientation to person, place and time. Behavior, mood, and affect are within normal limits. 10:19 ENT: Moist mucous membranes, mild posterior gingival erythema without exudates, hypertrophy, uvula is midline. Vital Signs: 10:01 BP 129 / 88; Pulse 102; Resp 18; Temp 99.9(O); Pulse Ox 98% ; Weight 113.4 kg; Height 5 db ft. 11 in. ; Pain 7/10; 11:00 BP 141 / 82; Pulse 94; Resp 18; Pulse Ox 97% on R/A; eh3 12:00 BP 139 / 79; Pulse 91; Resp 18; Pulse Ox 97% on R/A; eh3 10:01 Body Mass Index 34.87 (113.40 kg, 180.34 cm) db 10:01 Pain Scale: Adult db MDM: 10:06 Patient medically screened. rt 12:10 Differential Diagnosis Viral pharyngitis, strep pharyngitis, flu, COVID. Data reviewed: rt vital signs, nurses notes, lab test result(s). I considered the following discharge prescriptions or medication management in the emergency department Medications were administered in the Emergency Department. See MAR. Test considered but Not performed: CT: No clinical evidence to suggest RPA, PRODUCTION TOOL ENGINEER, Nabil's angina, CT scan not indicated. Counseling: I had a detailed discussion with the patient and/or guardian regarding the historical points, exam findings, and any diagnostic results supporting the discharge/admit diagnosis, lab results, the need for outpatient follow up, to return to the emergency department if symptoms worsen or persist or if there are any questions or concerns that arise at home. 04/28 10:13 Order name: COVID-19 SARS RT PCR rt 04/28 10:13 Order name: Strep rt 04/28 10:26 Order name: SARS-COV-2 RT PCR; Complete Time: 12:05 EDMS 04/28 10:26 Order name: Influenza Screen (A ; Complete Time: 12:05 EDMS Administered Medications: 10:39 Drug: Ibuprofen PO 800 mg PO once Route: PO; 3 11:15 Follow up: Response: No adverse reaction 3 Disposition Summary: 04/28/23 12:10 Discharge Ordered Notes: Location: Home rt Problem: new rt Symptoms: have improved rt Condition: Stable rt Diagnosis - Streptococcal pharyngitis rt Followup: rt - With: Private Physician - When: 2 - 3 days - Reason: Discharge Instructions: - Discharge Summary Sheet rt - Strep Throat, Adult rt Forms: - Work release form eh3 - Medication Reconciliation Form rt - Thank You Letter rt - Antibiotic Education rt - Prescription Opioid Use rt - Patient Portal Instructions rt - Leadership Thank You Letter rt Prescriptions: - Amoxicillin 875 mg Oral Tablet - take 1 tablet ORAL route every 12 hours for 10 days; 20 tablet; Refills: 0, rt Product Selection Permitted Signatures: Dispatcher [employer] Oksana Whitney RN RN 3 Rhonda Haley RN RN John Vernon MD MD rt
--- NOTE | 2023-04-28 12:11 | ER ---
Nurse's Notes [facility] Name: Mauricio Carolina Age: 27 yrs Sex: Male : 1995 Arrival Date: 04/28/2023 Time: 09:50 Bed 18 Private MD: Diagnosis: Streptococcal pharyngitis Presentation: 04/28 10:01 Chief complaint: Patient states: congestion, chills, sore throat, and body aches db started yesterday. states took theraflu. Coronavirus screen: Vaccine status: Patient reports being unvaccinated. Ebola Screen: Patient negative for fever greater than or equal to 101.5 degrees Fahrenheit, and additional compatible Ebola Virus Disease symptoms Patient denies exposure to infectious person. Patient denies travel to an Ebola-affected area in the 21 days before illness onset. No symptoms or risks identified at this time. Initial Sepsis Screen: Does the patient meet any 2 criteria? No. Patient's initial sepsis screen is negative. Does the patient have a suspected source of infection? No. Patient's initial sepsis screen is negative. Risk Assessment: Do you want to hurt yourself or someone else? Patient reports no desire to harm self or others. Onset of symptoms was April 27, 2023. 10:01 Method Of Arrival: Ambulatory db 10:01 Acuity: TRACY 3 db Triage Assessment: 10:03 General: Appears in no apparent distress. comfortable, Behavior is calm, cooperative. db Pain: Complains of pain in head and neck. EENT: Reports nasal congestion since yesterday. Neuro: Level of Consciousness is awake, alert, obeys commands, Oriented to person, place, time, situation. Historical: - Allergies: 10:03 NKA; db - PSHx: 10:03 right arm surgery; db - Immunization history:: Adult Immunizations unknown. - Social history:: Smoking status: Patient denies any tobacco usage or history of. - Family history:: not pertinent, pertinent for. Screenin:05 [facility] ED Fall Risk Assessment (Adult) Score/Fall Risk Level 0 - 2 = Low Risk. Abuse eh3 screen: Denies threats or abuse. Denies injuries from another. Nutritional screening: No deficits noted. Tuberculosis screening: No symptoms or risk factors identified. Assessment: 10:05 General: Appears in no apparent distress. uncomfortable, Behavior is calm, cooperative, eh3 appropriate for age. Pain: Complains of pain in neck and head. Neuro: Level of Consciousness is awake, alert, obeys commands, Oriented to person, place, time, situation. Neuro: Reports headache. Cardiovascular: Capillary refill < 3 seconds Patient's skin is warm and dry. Respiratory: Reports cough that is non-productive, pain with cough Airway is patent Respiratory effort is even, unlabored, Respiratory pattern is regular, symmetrical. GI: Abdomen is round non-distended. Derm: Skin is pink, warm \T\ dry. Musculoskeletal: Circulation, motion, and sensation intact. 11:00 Reassessment: Patient appears in no apparent distress at this time. Patient and/or eh3 family updated on plan of care and expected duration. Pain level reassessed. Patient is alert, oriented x 3, equal unlabored respirations, skin warm/dry/pink. 12:00 Reassessment: Patient appears in no apparent distress at this time. Patient and/or eh3 family updated on plan of care and expected duration. Pain level reassessed. Patient is alert, oriented x 3, equal unlabored respirations, skin warm/dry/pink. Vital Signs: 10:01 BP 129 / 88; Pulse 102; Resp 18; Temp 99.9(O); Pulse Ox 98% ; Weight 113.4 kg; Height 5 db ft. 11 in. ; Pain 7/10; 11:00 BP 141 / 82; Pulse 94; Resp 18; Pulse Ox 97% on R/A; eh3 12:00 BP 139 / 79; Pulse 91; Resp 18; Pulse Ox 97% on R/A; eh3 10:01 Body Mass Index 34.87 (113.40 kg, 180.34 cm) db 10:01 Pain Scale: Adult db ED Course: 09:52 Patient arrived in ED. rg4 09:57 John Vernon MD is Attending Physician. rt 10:03 Triage completed. db 10:03 Arm band placed on Patient placed in an exam room. db 10:05 Patient has correct armband on for positive identification. Bed in low position. Call eh3 light in reach. Side rails up X2. Provided Education on: use of call garner. Pulse ox on. NIBP on. 10:32 Oksana Salinas, DONNY is Primary Nurse. eh3 12:25 No provider procedures requiring assistance completed. Patient did not have IV access eh3 during this emergency room visit. Administered Medications: 10:39 Drug: Ibuprofen PO 800 mg PO once Route: PO; eh3 11:15 Follow up: Response: No adverse reaction eh3 Medication: 12:25 VIS not applicable for this client. eh3 Outcome: 12:10 Discharge ordered by . rt 12:30 Discharged to home ambulatory, 3 12:30 Condition: stable 12:30 Discharge instructions given to patient, Instructed on discharge instructions, follow up and referral plans. medication usage, Demonstrated understanding of instructions, follow-up care, medications, Prescriptions given X 1, 12:32 Patient left the ED. eh3 Signatures: Leesa Aguayo rg4 Oksana Salinas RN RN 3 Rhonda Haley RN RN db John Vernon MD MD rt
[2023-04-28 16:55] VITALS: TEMP 99.9
[2023-04-28 16:56] VITALS: O2SAT 97
[2023-04-28 16:57] VITALS: BP 139/79
== END 2023-04-28 12:32 | disposition home or self-care (01) ==
LOC: ER 09:50
DX: J02.0 Streptococcal pharyngitis (principal); Z11.52 Encounter for screening for COVID-19
CPT/HCPCS: 87081; 87635; 87804; 99284

== ENCOUNTER → 2023-05-30 | Emergency (ER) | payer OTHER ==
[~2023-05-30] MED LIST: DIAZEPAM 5 MG TABLET ONE
--- OUTSIDE RECORDS SUMMARY | 2023-05-30 07:12 | XMS REPORT | Continuity of Care Document ---
Author Name Unknown Address [address] [facility] [place] [address] [facility] thconnect Address [address] [facility] [facility] [place] [address] Care Team Providers Care Ash Worker Name Role Phone PCP, PATIENT DOES NOT HAVE A Primary Care Physic forrest Unavailable Franchesca JOSE Attending Clinician Unavailable Franchesca Acosta Attending Clinician [phone] MARCY SARMIENTO Attending Clinician Unavailable Marcy Sarmiento MD Attending Clinician [phone] EMILE TEJEDA Attending Clinician Unavailable Emile Tejeda DO Attending Clinician [phone] Payers Payer Name Policy Type Policy Number Effective Date Expirati on Date Source HIM CATIE FROM [facility] [id number] 2022 00:00:00 Problems Condition Name Condition Details Condition Category Status Onset Date Resolution Date Last Treatment Date Treating Clinician Comments Source No known active problems No known active problems Disease [facility] Allergies, Adverse Reactions, Alerts Allergy Name Allergy Type Status Severity Reaction(s) Onset Date Inactive Date Treating Clinician Comments Source NO KNOWN ALLERGIE S Drug Class Active [facility] Social History Social Habit Start Date Stop Date Quantity Comments Source Sexual orientation [facility] Exposure to SARS-CoV-2 (event) 2022-01-12 00:00:00 2022-01-22 22:43:00 Not sure [facility] Sex Assigned At 1995 00:00:00 1995 00:00:00 [facility] Smoking Status Start Date Stop Date Source Tobacco smoking consumption unknown [facility] Medications Ordered Medication Name Filled Medication Name Start Date Stop Date Current Medication? Ordering Clinician Indication Dosage Frequency Signature (SIG) Comments Components Source naproxen (NAPROSYN) 500 mg tablet 02-14 00:00: 00 Yes [id number] 500mg Take 1 tablet by mouth in the morning and 1 tablet in the evening. Take with meals. [facility] naproxen sodium (ANAPROX) 550 mg tablet 02-19 00:00: 00 Yes 550mg Take 1 Tab by mouth 2 (two) times daily with meals. [facility] naproxen sodium (ANAPROX) 550 mg tablet 02-19 00:00: 00 Yes 550mg Take 1 Tab by mouth 2 (two) times daily with meals. [facility] naproxen sodium (ANAPROX) 550 mg tablet 02-19 00:00: 00 Yes 550mg Take 1 Tab by mouth 2 (two) times daily with meals. [facility] Immunizations Ordered Immunization Name Filled Immunization Name Date Status Comments Source TDAP (ADACEL) VACCINE 2019-02-17 00:00:00 Completed [facility] TDAP (ADACEL) VACCINE 2019-02-17 00:00:00 Completed [facility] TDAP (ADACEL) VACCINE Unknown Completed [facility] Vital Signs Vital Name Observation Time Observation Value Comments S eunice Systolic blood pressure 2023-02-14 13:30:00 143 mm[Hg] [facility] Diastolic blood pressure 2023-02-14 13:30:00 87 mm[Hg] [facility] Heart rate 2023-02-14 13:30:00 72 /min [facility] Body temperature 2023-02-14 13:30:00 36.83 Nena [facility] Respiratory rate 2023-02-14 13:30:00 16 /min [facility] Body height 2023-02-14 13:30:00 180.3 cm [facility] Body weight 2023-02-14 13:30:00 114.76 kg [facility] BMI 2023-02-14 13:30:00 35.29 kg/m2 [facility] Oxygen saturation in Arterial blood by Pulse oximetry 2023-02-14 13:30:00 97 /min [facility] Systolic blood pressure 2022-01-23 03:46:00 120 mm[Hg] [facility] Diastolic blood pressure 2022-01-23 03:46:00 90 mm[Hg] [facility] Heart rate 2022-01-23 03:46:00 75 /min [facility] Body temperature 2022-01-23 03:46:00 36.39 Nena [facility] Respiratory rate 2022-01-23 03:46:00 18 /min [facility] Body height 2022-01-23 03:46:00 180.3 cm [facility] Body weight 2022-01-23 03:46:00 100.699 kg [facility] BMI 2022-01-23 03:46:00 30.96 kg/m2 [facility] Oxygen saturation in Arterial blood by Pulse oximetry 2022-01-23 03:46:00 95 /min [facility] Systolic blood pressure 2021-05-15 15:34:00 128 mm[Hg] [facility] Diastolic blood pressure 2021-05-15 15:34:00 78 mm[Hg] [facility] Heart rate 2021-05-15 15:34:00 106 /min [facility] Body temperature 2021-05-15 15:34:00 38.33 Nena [facility] Respiratory rate 2021-05-15 15:34:00 18 /min [facility] Body height 2021-05-15 15:34:00 180.3 cm [facility] Body weight 2021-05-15 15:34:00 99.791 kg [facility] BMI 2021-05-15 15:34:00 30.68 kg/m2 [facility] Oxygen saturation in Arterial blood by Pulse oximetry 2021-05-15 15:34:00 96 /min [facility] Procedures Procedure Date / Time Performed Performing Clinicia n Source ASSIGNMENT OF BENEFITS 2023-02-14 14:53:54 Docto r Unassigned, Franquez [facility] RAPID STREP SCREEN FOR GROUP A 2023-02-14 14:32:00 Franchesca Jose [facility] CONSENT/REFUSAL FOR DIAGNOSIS AND TREATMENT 2023-02-14 13:27:43 Doctor Unassigned, Franquez [facility] CONSENT/REFUSAL FOR DIAGNOSIS AND TREATMENT 2022-01-23 03:08:15 Doctor Unassigned, Franquez [facility] NOTICE OF PRIVACY PRACTICES 2021-05-15 15:26:30 Doctor Unassigned, Franquez [facility] CONSENT/REFUSAL FOR DIAGNOSIS AND TREATMENT 2021-05-15 15:26:13 Doctor Unassigned, Franquez [facility] Encounters Start Date/Time End Date/Time Encounter Type Admission Type Attending [facility] Care Facility Care Department Encounter ID Source 2023-02-14 08:34:00 2023-02-14 11:00:00 Emergency X REBECA Franchesca [facility] ERT [id number] [facility] 2023-02-14 08:34:00 2023-02-14 11:00:00 Emergency RebecaFranchesca Doris [facility] [id number] [facility] 2022-01-22 22:48:00 2022-01-23 01:57:00 Emergency X MARCY SARMIENTO [facility] ERT [id number] [facility] 2022-01-22 22:48:00 2022-01-23 01:57:00 Emergency Marcy Sarmiento [facility] [id number] [facility] 2021-05-15 09:37:00 2021-05-15 10:29:00 Emergency X CONCHA TEJEDAIP [facility] ERT [id number] [facility] 2021-05-15 09:37:00 2021-05-15 10:29:00 Emergency Emile Tejeda [facility] [id number] [facility]
[2023-05-30 07:58] LABS: Absolute Lymphocytes (CBC) 2.1 K/uL (0.7-4.9); Hematocrit 40.3 % (39.6-49.0); Lymphocytes % 19.8 % (15.3-44.8); MCV 84.6 fL (80-100); MPV 8.4 fL (7.6-11.3); Platelets 254 thou/uL (152-406); RBC Red Blood Cell Count 4.77 M/uL (4.33-5.43)
[2023-05-30 08:23] LABS: Potassium 3.8 mEq/L (3.5-5.1); Troponin High Sensitivity 6.3 pg/mL (<58.9)
--- NOTE | 2023-05-30 09:15 | RAD REPORT ---
EXAM DESCRIPTION: Ashleyt Single View05/30/2023 8:06 am CLINICAL HISTORY: CHEST PAIN COMPARISON: Chest Pa And Lat (2 Views) dated 04/10/2018; Chest Pa And Lat (2 Views) dated 05/17/2016 ; CHEST SINGLE VIEW dated 05/16/2015; ABDOMEN 1 VIEW KUB dated 05/16/2015 TECHNIQUE: Portable AP view of the chest. FINDINGS: The lungs are clear. No pneumothorax or effusion. The cardiomediastinal contours are unre markable. IMPRESSION: No acute cardiopulmonary process.
--- NOTE | 2023-05-30 10:35 | ER ---
Nurse's Notes [facility] Name: Mauricio Carolina Age: 27 yrs Sex: Male : 1995 Arrival Date: 05/30/2023 Time: 07:09 Bed 4 Private MD: Diagnosis: Chest pain, unspecified Presentation: 05/30 07:31 Chief complaint: Patient states: "I did cocaine last night and now I feel weird, my hb chest is tight and my throat feels like it is closing up." Reports doing cocaine from 11pm last night to 0530 this morning. Denies alcohol or other drug use today. Coronavirus screen: At this time, the client does not indicate any symptoms associated with coronavirus-19. Ebola Screen: No symptoms or risks identified at this time. Initial Sepsis Screen: Does the patient meet any 2 criteria? No. Patient's initial sepsis screen is negative. Does the patient have a suspected source of infection? No. Patient's initial sepsis screen is negative. Risk Assessment: Do you want to hurt yourself or someone else? Patient reports no desire to harm self or others. Onset of symptoms was May 30, 2023. 07:31 Method Of Arrival: Ambulatory hb 07:31 Acuity: TRACY 3 hb Historical: - Allergies: 07:34 NKA; hb - Home Meds: 07:34 None [Active]; hb - PMHx: 07:34 None; hb - PSHx: 07:34 right arm surgery; hb - Immunization history:: Adult Immunizations up to date. - Social history:: Smoking status: Patient denies any tobacco usage or history of. Screenin:48 [facility] ED Fall Risk Assessment (Adult) History of falling in the last 3 months, db including since admission No falls in past 3 months (0 pts) Confusion or Disorientation No (0 pts) Intoxicated or Sedated No (0 pts) Impaired Gait No (0 pts) Mobility Assist Device Used No (0 pt) Altered Elimination No (0 pt) Score/Fall Risk Level 0 - 2 = Low Risk Oriented to surroundings, Maintained a safe environment. Abuse screen: Denies threats or abuse. Denies injuries from another. Nutritional screening: No deficits noted. Tuberculosis screening: No symptoms or risk factors identified. Assessment: 07:48 Reassessment: Patient appears in no apparent distress at this time. Patient and/or db family updated on plan of care and expected duration. Pain level reassessed. Patient is alert, oriented x 3, equal unlabored respirations, skin warm/dry/pink. General: Appears in no apparent distress. comfortable, Behavior is calm, cooperative. Pain: Complains of pain in chest Pain does not radiate. Pain began 2 hours ago. Neuro: Level of Consciousness is awake, alert, obeys commands, Oriented to person, place, time, situation. Cardiovascular: Reports CHEST PRESSURE. Respiratory: Airway is patent Respiratory effort is even, unlabored, Respiratory pattern is regular, symmetrical. 08:21 Reassessment: Patient appears in no apparent distress at this time. Patient and/or db family updated on plan of care and expected duration. Pain level reassessed. Patient is alert, oriented x 3, equal unlabored respirations, skin warm/dry/pink. 08:31 Reassessment: Patient appears in no apparent distress at this time. Patient and/or db family updated on plan of care and expected duration. Pain level reassessed. Patient states feeling better. Patient states symptoms have improved. 09:30 Reassessment: Patient appears in no apparent distress at this time. Patient and/or db family updated on plan of care and expected duration. Pain level reassessed. Patient is alert, oriented x 3, equal unlabored respirations, skin warm/dry/pink. 10:51 Reassessment: Patient appears in no apparent distress at this time. Patient and/or db family updated on plan of care and expected duration. Pain level reassessed. Patient is alert, oriented x 3, equal unlabored respirations, skin warm/dry/pink. Patient states feeling better. Patient states symptoms have improved. Vital Signs: 07:31 BP 132 / 85; Pulse 77; Resp 20; Temp 98.7(O); Pulse Ox 100% on R/A; Weight 113.4 kg; hb Height 5 ft. 11 in. ; Pain 0/10; 08:00 BP 121 / 72; Pulse 73; Resp 18; Pulse Ox 98% on R/A; db 09:00 BP 114 / 66; Pulse 65; Resp 18; Pulse Ox 100% on R/A; db 10:30 BP 125 / 85; Pulse 65; Resp 18; Pulse Ox 100% on R/A; db 07:31 Body Mass Index 34.87 (113.40 kg, 180.34 cm) hb 07:31 Pain Scale: Adult hb ED Course: 07:13 Patient arrived in ED. mg5 07:33 Tim Ybarra MD is Attending Physician. ec2 07:34 Triage completed. hb 07:34 Arm band placed on. hb 07:36 Rhonda Haley, RN is Primary Nurse. db 07:40 EKG done, by ED staff, reviewed by Tim Ybarra MD. em1 07:42 Initial lab(s) drawn, by me, sent to lab. Missed attempt(s): 20 gauge in right db antecubital area. Bleeding controlled, band aid applied, catheter tip intact. 08:07 XRAY Chest (1 view) In Process Unspecified. EDMS 08:31 Patient has correct armband on for positive identification. Bed in low position. Call db light in reach. Side rails up X 1. Client placed on continuous cardiac and pulse oximetry monitoring. NIBP monitoring applied. 10:51 Provided Education on: DISCHARGE. db 10:51 No provider procedures requiring assistance completed. IV discontinued, intact, db bleeding controlled, No redness/swelling at site. Patient maintains SpO2 saturation greater than 95% on room air. Administered Medications: 07:57 Drug: Diazepam PO 5 mg PO once Route: PO; db 10:53 Follow up: Response: No adverse reaction db Medication: 07:48 VIS not applicable for this client. db Outcome: 10:35 Discharge ordered by . ec2 10:51 Discharged to home ambulatory, db 10:51 Condition: stable 10:51 Discharge instructions given to patient, Instructed on discharge instructions, follow up and referral plans. 10:53 Patient left the ED. db Signatures: Dispatcher [employer] Mauricio Marvin em1 Tiesha Corona, RN RN Rhonda Haley, RN RN Juliana Donahue mg5 Tim Ybarra MD MD ec2
--- NOTE | 2023-05-30 10:35 | EDPHYS ---
Physician Documentation [facility] Name: Mauricio Carolina Age: 27 yrs Sex: Male : 1995 Arrival Date: 05/30/2023 Time: 07:09 Bed 4 Private MD: ED Physician Tim Ybarra HPI: 05/30 07:44 This 27 yrs old Black Male presents to ER via Ambulatory with complaints of Chest Pain, ec2 Doesn't Feel Right. 07:44 Patient arrives today for evaluation of left-sided chest pain as well as chest ec2 tightness and throat tightness. Patient reports that he had been taking cocaine earlier this morning, states he started feeling discomfort around 2 hours prior to arrival. Patient reports no significant difficulty breathing. Patient reports no cardiac disease, no significant medical problems. Reports no daily medication use. Reports no previous similar types of pain. States that the pain is worse with movement.. Historical: - Allergies: 07:34 NKA; hb - Home Meds: 07:34 None [Active]; hb - PMHx: 07:34 None; hb - PSHx: 07:34 right arm surgery; hb - Immunization history:: Adult Immunizations up to date. - Social history:: Smoking status: Patient denies any tobacco usage or history of. ROS: 07:44 Constitutional: as per hpi ec2 Exam: 07:44 Constitutional: GEN: NAD Head: atraumatic Eyes: EOMI Ears: External ears are ec2 normal. CV: regular rate, no murmurs LUNGS: no respiratory distress, no wheezes, no rales, rhonchi ABD: non-distended SKIN: no evidence of rashes MSK: no evidence of trauma, reproducible chest wall TTP. NEURO: moves all extremities equally Vital Signs: 07:31 BP 132 / 85; Pulse 77; Resp 20; Temp 98.7(O); Pulse Ox 100% on R/A; Weight 113.4 kg; hb Height 5 ft. 11 in. ; Pain 0/10; 08:00 BP 121 / 72; Pulse 73; Resp 18; Pulse Ox 98% on R/A; db 09:00 BP 114 / 66; Pulse 65; Resp 18; Pulse Ox 100% on R/A; db 10:30 BP 125 / 85; Pulse 65; Resp 18; Pulse Ox 100% on R/A; db 07:31 Body Mass Index 34.87 (113.40 kg, 180.34 cm) hb 07:31 Pain Scale: Adult hb MDM: 07:33 Patient medically screened. ec2 07:44 Data reviewed: vital signs. ED course: Patient arrives today for evaluation of chest ec2 pain. Examination remarkable for well-appearing nontoxic individual is otherwise in no acute distress with a reassuring examination, will give the patient Valium for his chest pain with relation to cocaine use. Will also obtain lab work EKG and chest x-ray. Currently considering ACS, anxiety, reaction from substances.. 07:46 ED course: EKG independently reviewed and interpreted by me, shows normal sinus rhythm, ec2 rate of 82, no acute ST segment elevations, nonconcerning intervals. . 08:26 ED course: Metabolic profile is reassuring, CBC with minimal anemia noted. Troponin ec2 within normal ranges. Will obtain repeat EKG and troponin. . 08:29 ED course: Chest x-ray independently reviewed and interpreted by me, shows borderline ec2 cardiomegaly, no evidence of mediastinal widening or pleural effusions.. 09:59 ED course: Repeat EKG independently reviewed and interpreted by me, shows normal sinus ec2 rhythm, rate 63, no acute ST segment elevations, nonconcerning and normal, first-degree AV block noted.. 10:02 ED course: On reassessment patient is well-appearing and in no acute distress, patient ec2 with resolution of symptoms, pending repeat troponin.. 10:34 ED course: Repeat troponin is static. Will discharge to home and have him follow-up ec2 with primary care doctor. Return precautions given.. 05/30 07:35 Order name: Basic Metabolic Panel; Complete Time: 08:26 ec2 05/30 07:35 Order name: CBC with Diff; Complete Time: 08:26 ec2 05/30 07:35 Order name: Troponin HS; Complete Time: 08:26 ec2 05/30 09:17 Order name: Troponin HS; Complete Time: 10:34 ec2 05/30 07:35 Order name: XRAY Chest (1 view); Complete Time: 09:17 ec2 05/30 07:35 Order name: EKG; Complete Time: 07:35 ec2 05/30 07:35 Order name: Cardiac monitoring; Complete Time: 07:50 ec2 05/30 07:35 Order name: EKG - Nurse/Tech; Complete Time: 07:36 ec2 05/30 07:35 Order name: IV Saline Lock; Complete Time: 07:51 ec2 05/30 07:35 Order name: Labs collected and sent; Complete Time: 07:51 ec2 05/30 07:35 Order name: O2 Per Protocol; Complete Time: 07:51 ec2 05/30 07:35 Order name: O2 Sat Monitoring; Complete Time: 07:51 ec2 05/30 09:17 Order name: EKG - Nurse/Tech; Complete Time: 10:03 ec2 Administered Medications: 07:57 Drug: Diazepam PO 5 mg PO once Route: PO; db 10:53 Follow up: Response: No adverse reaction db Disposition Summary: 05/30/23 10:35 Discharge Ordered Notes: Location: Home ec2 Condition: Stable ec2 Diagnosis - Chest pain, unspecified ec2 Followup: ec2 - With: Private Physician - When: - Reason: Re-evaluation by your physician Discharge Instructions: - Discharge Summary Sheet ec2 - Nonspecific Chest Pain, Adult ec2 Forms: - Medication Reconciliation Form ec2 - Thank You Letter ec2 - Antibiotic Education ec2 - Prescription Opioid Use ec2 - Patient Portal Instructions ec2 - Leadership Thank You Letter ec2 Signatures: Dispatcher [employer] Tiesha Kyle, DONNY RN Rhonda Prather RN RN db Tim Ybarra MD MD ec2
[2023-05-30 11:36] VITALS: TEMP 98.7; O2SAT 100
[2023-05-30 11:49] VITALS: BP 125/85
--- NOTE | 2023-05-31 12:23 | EKG ---
Test Date: 2023-05-30 Test Time: 07:29:21 Health Benefits Specialist: MARIELENA MEASUREMENT RESULTS: Intervals: Rate: 82 KS: 194 QRSD: 90 QT: 354 QTc: 413 [place]: P: 46 KS: 194 QRS: 31 T: 29 INTERPRETIVE STATEMENTS: Normal sinus rhythm Possible Left atrial enlargement Borderline ECG Compared to ECG 12/05/2022 22:17:07 Sinus arrhythmia no longer present Electronically Signed On 05-31-23 12:19:53 FIREWORKS ASSEMBLER by Ayad Bray
--- NOTE | 2023-05-31 12:23 | EKG ---
Test Date: 2023-05-30 Test Time: 09:49:04 Marine Technician: GREGORIO MEASUREMENT RESULTS: Intervals: Rate: 63 NC: 212 QRSD: 96 QT: 382 QTc: 390 [place]: P: 48 NC: 212 QRS: 40 T: 27 INTERPRETIVE STATEMENTS: Sinus rhythm with 1st degree AV block Otherwise normal ECG Compared to ECG 05/30/2023 07:29:21 First degree AV block now present Electronically Signed On 05-31-23 12:19:48 FOOT GATHERER by Ayad Bray
== END ==
LOC: ER 07:09
DX: R07.89 Other chest pain (principal)
CPT/HCPCS: 36415; 71045; 80048; 84484; 85025; 93005; 99284

== ENCOUNTER 2023-12-27 09:07 | Emergency (ER) | payer OTHER ==
--- OUTSIDE RECORDS SUMMARY | 2023-12-27 09:10 | XMS REPORT | Continuity of Care Document ---
Author Name Unknown Address [address] [facility] [address] [place] [address] [facility] thconnect Address [address] 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 Role Phone PCP, PATIENT DOES NOT HAVE A Primary Care Physic forrest Unavailable KENZIE MALDONADO Attending Clinician Unavailable KENZIE MALDONADO Attending Clinician Unavailable CINDY SALAS Attending Clinician UnavailCindy Mijares MD Attending Clinician [phone] Franchesca JOSE Attending Clinician Unavailable Franchesca Acosta Attending Clinician [phone] TWAN CLINTON Attending Clinician Unavailable Twan Clinton MD Attending Clinician [phone] DAVID TEJEDA Attending Clinician Unavailable David Tejeda DO Attending Clinician [phone] KENZIE MALDONADO Admitting Clinician Unavailable CINDY SALAS Admitting Clinician Unavailabl e Payers Payer Name Policy Type Policy Number Effective Date Expirati on Date Source [facility] [id number] 2023 00:00:00 2024 00:00:00 HILDA REDMONDLOUIE FROM [facility] [id number] 2022 00:00:00 Problems Condition Name Condition Details Condition Category Status Onset Date Resolution Date Last Treatment Date Treating Clinician Comments Source No known active problems No known active problems Disease [facility] Allergies, Adverse Reactions, Alerts Allergy Name Allergy Type Status Severity Reaction(s) Onset Date Inactive Date Treating Clinician Comments Source NO KNOWN ALLERGIE S Drug Class Active [facility] Social History Social Habit Start Date Stop Date Quantity Comments Source Sexual orientation [facility] Exposure to SARS-CoV-2 (event) 2022-01-12 00:00:00 2022-01-22 22:43:00 Not sure [facility] Sex assigned at 1995 00:00:00 1995 00:00:00 [facility] Smoking Status Start Date Stop Date Source Tobacco smoking consumption unknown [facility] Medications Ordered Medication Name Filled Medication Name Start Date Stop Date Current Medication? Ordering Clinician Indication Dosage Frequency Signature (SIG) Comments Components Source morpHINE (4 mg/mL) injection 4 mg 10-15 05:00: 00 10-15 04:29 :00 No 4mg 4 mg, Slow IV Push, ONCE, 1 dose, On Wed10/16/23 at 0000, [facility] morpHINE (4 mg/mL) injection 4 mg 10-15 02:00: 00 10-15 01:26 :00 No 4mg 4 mg, Slow IV Push, ONCE, 1 dose, On Wed10/15/23 at 2100, [facility] diphenhydrA MINE:lidoca ine 2% viscous:maa lox 1:1:1 (FIRST-MOUT HWASH BLM) oral suspension 15 mL 10-15 01:15: 00 10-15 01:26 :00 No 15mL 15 mL, Oral, ONCE, 1 dose, On Wed10/15/23 at 2015, [facility] famotidine (PEPCID (PF)) injection 20 mg 10-15 01:15: 00 10-15 01:25 :00 No 20mg 20 mg, Slow IV Push, ONCE, 1 dose, On Wed10/15/23 at 2015, [facility] ondansetron (ZOFRAN (PF)) injection 4 mg 10-15 01:15: 00 10-15 01:23 :00 No 4mg 4 mg, Slow IV Push, ONCE, 1 dose, On Wed10/15/23 at 2015, ANNAMARIA [facility] ondansetron 4 mg tablet 10-14 00:00: 00 Yes [id number] 1 or 2 tablets every 8 hours as needed for nausea [facility] traMADoL 50 mg tablet 10-14 00:00: 00 Yes [id number] 50mg Take 1 tablet by mouth every 6 (six) hours as needed (pain). Indication s: acute pain [facility] sucralfate 1 gram tablet 10-14 00:00: 00 Yes [id number] 1g Take 1 tablet by mouth before meals and at bedtime. [facility] naproxen (NAPROSYN) 500 mg tablet 02-14 00:00: 00 Yes [id number] 500mg Take 1 tablet by mouth in the morning and 1 tablet in the evening. Take with meals. [facility] naproxen sodium (ANAPROX) 550 mg tablet 02-19 00:00: 00 Yes 550mg Take 1 Tab by mouth 2 (two) times daily with meals. [facility] Immunizations Ordered Immunization Name Filled Immunization Name Date Status Comments Source TDAP (ADACEL) VACCINE 2019-02-17 00:00:00 Completed [facility] TDAP (ADACEL) VACCINE 2019-02-17 00:00:00 Completed [facility] TDAP (ADACEL) VACCINE Unknown Completed [facility] TDAP (ADACEL) VACCINE Unknown Completed [facility] TDAP (ADACEL) VACCINE Unknown Completed [facility] Vital Signs Vital Name Observation Time Observation Value Comments S oursummer Systolic blood pressure 2023-12-14 03:00:00 146 mm[Hg] [facility] Diastolic blood pressure 2023-12-14 03:00:00 89 mm[Hg] [facility] Heart rate 2023-12-14 03:00:00 67 /min [facility] Body temperature 2023-12-14 03:00:00 37.56 Nena [facility] Respiratory rate 2023-12-14 03:00:00 18 /min [facility] Oxygen saturation in Arterial blood by Pulse oximetry 2023-12-14 03:00:00 100 /min [facility] Body height 2023-12-14 01:30:00 180.3 cm [facility] Body weight 2023-12-14 01:30:00 115.667 kg [facility] BMI 2023-12-14 01:30:00 35.57 kg/m2 [facility] Oxygen saturation in Arterial blood by Pulse oximetry 2023-10-16 04:00:00 96 /min [facility] Systolic blood pressure 2023-10-16 04:00:00 142 mm[Hg] [facility] Diastolic blood pressure 2023-10-16 04:00:00 97 mm[Hg] [facility] Heart rate 2023-10-16 04:00:00 67 /min Un[facility] Respiratory rate 2023-10-16 04:00:00 14 /min [facility] Body temperature 2023-10-16 00:48:00 37.22 Nena [facility] Body height 2023-10-16 00:48:00 180.3 cm [facility] Body weight 2023-10-16 00:48:00 111.857 kg [facility] BMI 2023-10-16 00:48:00 34.39 kg/m2 [facility] Systolic blood pressure 2023-02-14 13:30:00 143 mm[Hg] [facility] Diastolic blood pressure 2023-02-14 13:30:00 87 mm[Hg] [facility] Heart rate 2023-02-14 13:30:00 72 /min Unive [facility] Body temperature 2023-02-14 13:30:00 36.83 Nena [facility] Respiratory rate 2023-02-14 13:30:00 16 /min [facility] Body height 2023-02-14 13:30:00 180.3 cm [facility] Body weight 2023-02-14 13:30:00 114.76 kg [facility] BMI 2023-02-14 13:30:00 35.29 kg/m2 [facility] Oxygen saturation in Arterial blood by Pulse oximetry 2023-02-14 13:30:00 97 /min [facility] Systolic blood pressure 2022-01-23 03:46:00 120 mm[Hg] [facility] Diastolic blood pressure 2022-01-23 03:46:00 90 mm[Hg] [facility] Heart rate 2022-01-23 03:46:00 75 /min Unive [facility] Body temperature 2022-01-23 03:46:00 36.39 Nena [facility] Respiratory rate 2022-01-23 03:46:00 18 /min [facility] Body height 2022-01-23 03:46:00 180.3 cm [facility] Body weight 2022-01-23 03:46:00 100.699 kg [facility] BMI 2022-01-23 03:46:00 30.96 kg/m2 [facility] Oxygen saturation in Arterial blood by Pulse oximetry 2022-01-23 03:46:00 95 /min [facility] Systolic blood pressure 2021-05-15 15:34:00 128 mm[Hg] [facility] Diastolic blood pressure 2021-05-15 15:34:00 78 mm[Hg] [facility] Heart rate 2021-05-15 15:34:00 106 /min [facility] Body temperature 2021-05-15 15:34:00 38.33 Nena [facility] Respiratory rate 2021-05-15 15:34:00 18 /min [facility] Body height 2021-05-15 15:34:00 180.3 cm [facility] Body weight 2021-05-15 15:34:00 99.791 kg [facility] BMI 2021-05-15 15:34:00 30.68 kg/m2 [facility] Oxygen saturation in Arterial blood by Pulse oximetry 2021-05-15 15:34:00 96 /min [facility] Procedures Procedure Date / Time Performed Performing Clinicia n Source EKG-12 LEAD 2023-12-14 03:38:08 Kenzie Maldonado [facility] TROPONIN I 2023-12-14 01:59:00 Kenzie Maldonado [facility] US GALL BLADDER 2023-10-16 03:07:35 Cindy Salas [facility] LIPASE 2023-10-16 01:12:00 Cindy Salas [facility] COMP. METABOLIC PANEL ([id number]) 2023-10-16 01:12:00 Cindy Salas [facility] CBC WITH DIFF 2023-10-16 01:12:00 [facility] 2023-10-16 01:02:00 Cindy Salas [facility] ASSIGNMENT OF BENEFITS 2023-02-14 14:53:54 Docto r Unassigned, [place] [facility] RAPID STREP SCREEN FOR GROUP A 2023-02-14 14:32:00 Franchesca Jose [facility] CONSENT/REFUSAL FOR DIAGNOSIS AND TREATMENT 2023-02-14 13:27:43 Doctor Unassigned, [place] [facility] CONSENT/REFUSAL FOR DIAGNOSIS AND TREATMENT 2022-01-23 03:08:15 Doctor Unassigned, [place] [facility] NOTICE OF PRIVACY PRACTICES 2021-05-15 15:26:30 Doctor Unassigned, [place] [facility] CONSENT/REFUSAL FOR DIAGNOSIS AND TREATMENT 2021-05-15 15:26:13 Doctor Unassigned, [place] [facility] Encounters Start Date/Time End Date/Time Encounter Type Admission Type Attending [facility] Care Facility Care Department Encounter ID Source 2023-12-13 20:36:00 2023-12-13 22:46:00 Emergency X KENZIE MALDONADO [facility]IC[facility] ERT [id number] [facility] 2023-12-13 20:36:00 2023-12-13 22:46:00 Emergency Kenzie Maldonado [facility] [id number] [facility] 2023-10-15 19:50:00 2023-10-15 23:34:00 Emergency X CINDY SALAS [facility] ERT [id number] [facility] 2023-10-15 19:50:00 2023-10-15 23:34:00 Emergency Cindy Salas [facility] [id number] [facility] 2023-02-14 08:34:00 2023-02-14 11:00:00 Emergency X REBECA Franchesca [facility] ERT [id number] [facility] 2023-02-14 08:34:00 2023-02-14 11:00:00 Emergency Franchesca Jose Doris [facility] [id number] [facility] 2022-01-22 22:48:00 2022-01-23 01:57:00 Emergency X TWAN CLINTON [facility] ERT [id number] [facility] 2022-01-22 22:48:00 2022-01-23 01:57:00 Emergency Twan Clinton [facility] [id number] [facility] 2021-05-15 09:37:00 2021-05-15 10:29:00 Emergency DAVID CORMIER [facility] ERT [id number] [facility] 2021-05-15 09:37:00 2021-05-15 10:29:00 Emergency David Tejeda [facility] [id number] [facility] Results Test Description Test Time Test Comments Results Result Co mments Source [facility] [id number] 03:51:53Ordering Physician: ABIDA EDMOND HISTORY: Right upper quadrant pain. COMPARISON: none Permanentlyrecorded sonographic images were stored in the PACs system. ? FINDINGS: The liver is echogenic. Thegallbladder is normal without stones or sludge.The common bile duct measures 3 mm. No free fluid isseen in the abdomen. Color imaging demonstrates normal hepatopetal flow within the main portalvein.? Pulse color doppler examination demonstrates a normal portal venouswaveform in the main portal vein.[facility] Notes Date/Time Note Provider Source 2023-12-13 22:38:37 Pt given printed and verbal discharge instructions regarding chest pain and substance abuse. Prescriptions provided. Pt verbalized understanding of instructions, pt awake alert oriented, resp reg unlabored, skin w/d, color appropriate for race, moves all ext well,pt encouraged to follow up with pcp. Advised to seek medical attention for new/prolonged/worsening of symptoms. No adverse reaction to meds given in ER noted upon discharge. PIV d'cd, dressing to site, catheter in tact. Awake, alert oriented, resp reg unlabored, skin w/d, pt leaving amb with steady gait, in no apparent distress. Leah Lees RN [facility] 2023-12-13 20:25:25 Pt states "I did cocaine about 30 minutes ago and now I feel like I can't breathe and my chest is tight." Denies PMHx. States snorted the cocaine. Meka Blancas RN [facility] 2023-10-15 23:33:59 Patient discharged to home. Patient given printed and verbal discharge instructions regarding diagnosis. Instructed to follow up with PCP. Patient verbalized understanding of instructions. Patient awake, alert, oriented, respirations even and unlabored, skin warm and dry, color appropriate for race. No adverse reaction to meds given in ER noted upon discharge. PIV removed. Discussed medications. Advised to seek medical attention for new/prolonged/worsening of symptoms, patient ambulated from unit with steady gait in no apparent distress. [facility] 2023-10-15 23:11:37 Gave report to DONNY Keller Lisbeth Munroe RN [facility] 2023-10-15 19:53:26 Patient given urine cup for sample. T [facility] 2023-10-15 19:45:55 Patient arrived ambulatory to ED c/o upper mid abd pain that started about an hour ago. Patient was at work and tried to drink water when he noticed the pain. Last medication taken was Tylenol extra strength [facility]SS ARCHITECT. Patient denies N/V./D. NT Maddy Cash RN [facility] 2023-10-15 19:43:00 [facility] Emergency Department Note Patient Name: Lowell Banegas Date of : 1995 28 year old male Treatment Room: Room/bed info not found Primary Care Physician: PATIENT DOES NOT HAVE A PCP Patient Escorted by: Self [9] Mode of Arrival: Personal means [1] EMS Treatment Prior to ED Arrival: OSS ARCHITECT treatment: Medication (comment) OSS ARCHITECT treatment comments: Tylenol Travel and Exposure Screening: Symptoms Does patient have any of these symptoms?: (not recorded) Exposure Screening Has patient had contact with someone with a communicable disease in the last month?: (not recorded) Diseases exposed to:: (not recorded) Is Patient ?: (not recorded) Exposure Date: (not recorded) Chief Complaint: Chief Complaint Patient presents with Abdominal Pain History of Present Illness: Acute onset today with upper abdominal pain, epigastric >BUQ, constant with wax./wane intensity, aggravated with PO intake, deep breath. No fever. No nausea, vomiting, diarrhea. No black/bloody stools. No chest pain. No dyspnea. No prior similar episode. No fall or injury. History provided by: Patient (Lanre) Past Medical History/Immunizations: History reviewed. No pertinent past medical history. Tetanus received in last 5 years: Unknown Allergies: No Known Allergies Past Social History: Substance & Sexual Activity No substance use or sexual activity history on file. Past Surgical History: History reviewed. No pertinent surgical history. Review of Systems: Review of Systems Constitutional: Negative. HENT: Negative. Eyes: Negative. Respiratory: Negative. Cardiovascular: Negative. Gastrointestinal: Positive for abdominal pain. Negative for blood in stool, diarrhea, nausea and vomiting. Genitourinary: Negative. Musculoskeletal: Negative. Skin: Negative. Neurological: Negative. Psychiatric/Behavioral: Negative. Physical Exam: ED Triage Vitals [10/15/231947] Weight 111.9 kg (246 lb 9.6 oz) Actual or estimated Actual Height 1.803 m (5' 11") BP (!) 145/90 Pulse 75 Resp 18 Temp 37.2 ?C (99 ?F) Temp source Oral SpO2 98 % Measured on Room air Physical Exam Vitals and nursing note reviewed. Constitutional: General: He is not in acute distress. Appearance: Normal appearance. He is not ill-appearing, toxic-appearing or diaphoretic. HENT: Head: Normocephalic and atraumatic. Right Ear: External ear normal. Left Ear: External ear normal. Nose: Nose normal. Mouth/Throat: Mouth: Mucous membranes are moist. Eyes: Extraocular Movements: Extraocular movements intact. Conjunctiva/sclera: Conjunctivae normal. Cardiovascular: Rate and Rhythm: Normal rate and regular rhythm. Pulmonary: Effort: Pulmonary effort is normal. No respiratory distress. Breath sounds: Normal breath sounds. No wheezing, rhonchi or rales. Abdominal: General: There is no distension. Palpations: Abdomen is soft. Tenderness: There is abdominal tenderness (Epigastric>RUQ>LUQ). There is no right CVA tenderness or left CVA tenderness. Musculoskeletal: General: Normal range of motion. Cervical back: Normal range of motion. Skin: General: Skin is warm and dry. Neurological: General: No focal deficit present. Mental Status: He is alert. Psychiatric: Mood and Affect: Mood normal. Behavior: Behavior normal. Thought Content: Thought content normal. Judgment: Judgment normal. Radiology: US GALL BLADDER Final Result Ordering Physician: CINDY SALAS HISTORY: Right upper quadrant pain. COMPARISON: none Permanently recorded sonographic images were stored in the PACs system. FINDINGS: The liver is echogenic. The gallbladder is normal without stones or sludge. The common bile duct measures 3 mm. No free fluid is seen in the abdomen. Color imaging demonstrates normal hepatopetal flow within the main portal vein. Pulse color doppler examination demonstrates a normal portal venous waveform in the main portal vein. IMPRESSION 1. No sonographic gallbladder abnormalities seen. 2. Echogenic liver likely reflecting hepatic steatosis. RL: 135 Lab Results: Lab Results CBC WITH DIFF - Abnormal Result Value Ref Range WBC 9.36 4.20 - 10.70 10*3/?L RBC 4.58 4.26 - 5.52 10*6/?L HGB 13.1 12.2 - 16.4 g/dL HCT 39.4 38.4 - 49.3 % MCV 86.0 81.7 - 95.6 fL MCH 28.6 26.1 - 32.7 pg MCHC 33.2 31.2 - 35.0 g/dL RDW-SD 39.8 38.5 - 51.6 fL RDW-CV 12.7 12.1 - 15.4 % PLT 301 150 - 328 10*3/?L MPV 10.2 9.8 - 13.0 fL NRBC/100 WBC 0.0 0.0 - 10.0 /100 WBCs NRBC x10 3 <0.01 10*3/?L GRAN MAT (NEUT) % 50.4 % IMM GRAN % 0.40 % LYMPH % 36.6 % MONO % 6.5 % EOS % 5.7 % BASO % 0.4 % GRAN MAT x10 3 (ANC) 4.71 1.99 - 6.95 10*3/uL IMM GRAN x10 3 0.04 0.00 - 0.06 10*3/uL LYMPH x10 3 3.43 (*) 1.09 - 3.23 10*3/uL MONO x10 3 0.61 0.36 - 1.02 10*3/uL EOS x10 3 0.53 0.06 - 0.53 10*3/uL BASO x10 3 0.04 0.01 - 0.09 10*3/uL URINALYSIS - Abnormal APPEARANCE Hazy (*) Clear COLOR Yellow Yellow PH 6.0 4.8 - 8.0 SP GRAVITY 1.032 (*) 1.003 - 1.030 GLU U QUAL Normal Normal BLOOD Negative Negative KETONES Negative Negative PROTEIN Negative Negative UROBILIN 4.0 mg/dL (*) Normal BILIRUBIN Negative Negative NITRITE Negative Negative LEUK DARLENE Negative Negative RBC/HPF 8 (*) 0 - 3 HPF WBC/HPF 6 (*) 0 - 5 HPF BACTERIA Few (*) Negative MUCOUS Slight (*) Negative LPF SQ EPITH 1 HPF CA OXALATE 1 <=1 HPF YEAST BUD 6 (*) <=1 HPF LIPASE - Normal LIPASE 38 0 - 220 U/L COMP. METABOLIC PANEL (84393) NA 140 135 - 145 mmol/L K 3.8 3.5 - 5.0 mmol/L CL 106 98 - 108 mmol/L CO2 TOTAL 27 23 - 31 mmol/L AGAP 7 2 - 16 BUN 13 7 - 23 mg/dL GLUCOSE 109 70 - 110 mg/dL CREATININE 0.81 0.60 - 1.25 mg/dL TOTAL BILI 0.5 0.1 - 1.1 mg/dL CALCIUM 8.8 8.6 - 10.6 mg/dL T PROTEIN 7.5 6.3 - 8.2 g/dL ALBUMIN 4.1 3.5 - 5.0 g/dL ALK PHOS 94 34 - 122 U/L ALTv 38 5 - 50 U/L AST(SGOT) 29 13 - 40 U/L eGFR 121.6 mL/min/1.73m2 EKG: If EKG completed, see Procedure Note. Orders and Treatments: Orders Placed This Encounter Procedures US GALL BLADDER CBC WITH DIFF COMP. METABOLIC PANEL (76103) LIPASE URINALYSIS Orders Placed This Encounter Medications morpHINE (4 mg/mL) injection 4 mg ondansetron (ZOFRAN (PF)) injection 4 mg famotidine (PEPCID (PF)) injection 20 mg diphenhydrAMINE:lidocaine 2% viscous:maalox 1:1:1 (FIRST-MOUTHWASH BLM) oral suspension 15 mL morpHINE (4 mg/mL) injection 4 mg traMADoL 50 mg tablet sucralfate 1 gram tablet ondansetron 4 mg tablet First Provider Eval: ED Events Date/Time Event User Comments 10/15/231943 Medical Screening Begins CINDY SALAS MD -- 10/15/231943 First Provider Evaluation CINDY SALAS MD -- ED COURSE Diagnosis/Impression as of 10/15/23 2321 Abdominal pain, unspecified abdominal location Peptic ulcer disease Procedures: Procedures MDM: Medical Decision Making Primary impression: abdominal pain Secondary impression: Differential Diagnoses, including but not limited to: cholelithiasis, choledocholithiasis, pancreatitis, peptic ulcer disease, electrolyte / glucose abnl, anemia Problems Addressed: Abdominal pain, unspecified abdominal location: acute illness or injury Peptic ulcer disease: acute illness or injury Amount and/or Complexity of Data Reviewed Independent Historian: Details: Self, significant other Labs: ordered. Decision-making details documented in ED Course. Radiology: ordered. Decision-making details documented in ED Course. Discussion of management or test interpretation with external provider(s): N/a Risk OTC drugs. Prescription drug management. Parenteral controlled substances. Risk Details: Unremarkable OBS in ED. Findings and plan discussed with patient. He reports epigastric pain has not resolved. Additional medication provided. Recommended and offered additional workup to include CT Abdomen/Pelvis. Discussed expanded differential diagnosis. He declines additional studies No findings that require acute hospitalization today. He requests work note. Flowsheet Documentation: Scoring Tools: No data recorded Disposition/Condition: ED Disposition ED Disposition Disch - Home Condition Stable Comment -- Discharge Medications: Patient's Medications START taking these medications ONDANSETRON 4 MG TABLET 1 or 2 tablets every 8 hours as needed for nausea SUCRALFATE 1 GRAM TABLET Take 1 tablet by mouth before meals and at bedtime. TRAMADOL 50 MG TABLET Take 1 tablet by mouth every 6 (six) hours as needed (pain). Indications: acute pain CONTINUE taking these medications which have NOT CHANGED NAPROXEN (NAPROSYN) 500 MG TABLET Take 1 tablet by mouth in the morning and 1 tablet in the evening. Take with meals. NAPROXEN SODIUM (ANAPROX) 550 MG TABLET Take 1 Tab by mouth 2 (two) times daily with meals. START taking Modified Medications as Prescribed No medications on file STOP taking these medications No medications on file Follow-up: PCP Electronically signed by: Cindy Salas MD 10/15/23 2611 [facility]
[2023-12-27] MEDS ORDERED: IBUPROFEN 200 MG TAB PO ONE (09:18)
[2023-12-27] MEDS ORDERED: ONDANSETRON 4 MG (ODT) TAB ONE (09:22)
[2023-12-27 09:34] LABS: SARS-CoV-2 Antigen CONTROL BLUE LINE VIS/BG OK
[2023-12-27 09:35] LABS: SARS-CoV-2 Antigen Rapid Res Positive (Negative)
--- NOTE | 2023-12-27 09:35 | ER ---
Nurse's Notes [facility] Name: Mauricio Carolina Age: 28 yrs Sex: Male : 1995 Arrival Date: 12/27/2023 Time: 09:07 Bed 10 Private MD: Diagnosis: SARS-associated coronavirus as the cause of diseases classified elsewhere Presentation: 12/26 09:15 Chief complaint: Body aches, nausea, headache, sinus congestion, fever, and malaise hb upon waking today. Coronavirus screen: Client presents with at least one sign or symptom that may indicate coronavirus-19. Provider contacted for isolation considerations. Ebola Screen: No symptoms or risks identified at this time. Initial Sepsis Screen: Does the patient meet any 2 criteria? No. Patient's initial sepsis screen is negative. Does the patient have a suspected source of infection? No. Patient's initial sepsis screen is negative. Risk Assessment: Do you want to hurt yourself or someone else? Patient reports no desire to harm self or others. Onset of symptoms was December 27, 2023. 09:15 Method Of Arrival: Ambulatory hb 09:15 Acuity: TRACY 4 hb Triage Assessment: 09:21 General: Appears in no apparent distress. ill, Behavior is calm, cooperative. Pain: hb Pain currently is 5 out of 10 on a pain scale. EENT: Reports nasal congestion. Neuro: Level of Consciousness is awake, alert, obeys commands, Oriented to person, place, time, situation, Reports headache. Cardiovascular: Patient's skin is warm and dry. Respiratory: Respiratory effort is even, unlabored, Respiratory pattern is regular, symmetrical. Derm: Skin is pink, warm \T\ dry. Musculoskeletal: Reports body aches. Historical: - Allergies: 09:21 NKA; hb - Home Meds: 09:21 None [Active]; hb - PMHx: 09:21 None; hb - PSHx: 09:21 right arm surgery; hb - Immunization history:: Adult Immunizations up to date. - Infectious Disease History:: Denies. - Social history:: Smoking status: Patient reports the use of cigarette tobacco products. Screenin:22 [facility] ED Fall Risk Assessment (Adult) History of falling in the last 3 months, hb including since admission No falls in past 3 months (0 pts) Confusion or Disorientation No (0 pts) Intoxicated or Sedated No (0 pts) Impaired Gait No (0 pts) Mobility Assist Device Used No (0 pt) Altered Elimination No (0 pt) Score/Fall Risk Level 0 - 2 = Low Risk Oriented to surroundings, Maintained a safe environment, Educated pt \T\ family on fall prevention, incl call for assistance when getting out of bed. Abuse screen: Denies threats or abuse. Denies injuries from another. Nutritional screening: No deficits noted. Tuberculosis screening: No symptoms or risk factors identified. Assessment: 09:22 General: See triage assessment . hb 09:44 Reassessment: No changes from previously documented assessment. Patient and/or family ll1 updated on plan of care and expected duration. Pain level reassessed. Patient is alert, oriented x 3, equal unlabored respirations, skin warm/dry/pink. Vital Signs: 09:15 BP 130 / 79; Pulse 114; Resp 18; Temp 100.9(O); Pulse Ox 98% on R/A; Weight 104.33 kg; hb Height 5 ft. 11 in. ; Pain 5/10; 09:45 BP 128 / 73; Pulse 98; Resp 17; Temp 99.9; Pulse Ox 98% on R/A; ll1 09:15 Body Mass Index 32.08 (104.33 kg, 180.34 cm) hb 09:15 Pain Scale: Adult hb ED Course: 09:09 Patient arrived in ED. mr 09:10 Emily Rodriguez F[facility]-C [facility]. kb 09:10 Tim Ybarra MD is Attending Physician. kb 09:16 Triage completed. hb 09:17 SARS-COV-2 Antigen Rapid Sent. hb 09:17 Flu Sent. hb 09:21 Arm band placed on. hb 09:23 Patient has correct armband on for positive identification. Provided Education on: use hb of call light. 09:45 No provider procedures requiring assistance completed. Patient did not have IV access hb during this emergency room visit. 09:45 No provider procedures requiring assistance completed. Patient did not have IV access ll1 during this emergency room visit. Administered Medications: 09:21 Drug: Ibuprofen PO 600 mg PO once Route: PO; hb 09:45 Follow up: Response: No adverse reaction ll1 09:27 Drug: Ondansetron PO 4 mg PO once Route: PO; hb 09:45 Follow up: Response: No adverse reaction ll1 Medication: 09:22 VIS not applicable for this client. hb Outcome: 09:35 Discharge ordered by . steve 09:45 Discharged to home ambulatory, hb 09:45 Condition: stable 09:45 Discharge instructions given to patient, Instructed on discharge instructions, follow up and referral plans. medication usage, Demonstrated understanding of instructions, follow-up care, medications, 09:46 Patient left the ED. hb Signatures: Emily Rodriguez, [employer] DIVIDER-C RO[employer]ER-Saniya Fofana, Reg Reg mr Tiesha Corona, RN RN Carlton Cruz RN RN ll1
--- NOTE | 2023-12-27 09:36 | EDPHYS ---
Physician Documentation [facility] Name: Mauricio Carolina Age: 28 yrs Sex: Male : 1995 Arrival Date: 12/27/2023 Time: 09:07 Bed 10 Private MD: ED Physician Tim Ybarra HPI: 12/26 09:11 This 28 yrs old Black Male presents to ER via Unassigned with complaints of Flu kb Symptoms. 09:11 Pt is a 28 year old male who presents for fever, bodyaches, decreased taste, headache kb that started at 0300. Denies cough, congestion, sore throat, vomiting, diarrhea. Denies alleviating or aggravating factors. Historical: - Allergies: 09:21 NKA; hb - Home Meds: 09:21 None [Active]; hb - PMHx: 09:21 None; hb - PSHx: 09:21 right arm surgery; hb - Immunization history:: Adult Immunizations up to date. - Infectious Disease History:: Denies. - Social history:: Smoking status: Patient reports the use of cigarette tobacco products. ROS: 09:11 Constitutional: As per HPI kb Exam: 09:34 Constitutional: This is a well developed, well nourished patient who is awake, alert, kb and in no acute distress. Head/Face: Normocephalic, atraumatic. ENT: Moist Mucous membranes Cardiovascular: Regular rate Respiratory: Respirations even and unlabored. No increased work of breathing. Talking in full sentences Abdomen/GI: Soft, non-tender. No distention Skin: Warm, dry with normal turgor. Normal color. MS/ Extremity: Pulses equal, no cyanosis. Neurovascular intact. Full, normal range of motion. Neuro: Awake and alert, GCS 15, oriented to person, place, time, and situation. Moves all extremities. Normal gait. Vital Signs: 09:15 BP 130 / 79; Pulse 114; Resp 18; Temp 100.9(O); Pulse Ox 98% on R/A; Weight 104.33 kg; hb Height 5 ft. 11 in. ; Pain 5/10; 09:45 BP 128 / 73; Pulse 98; Resp 17; Temp 99.9; Pulse Ox 98% on R/A; ll1 09:15 Body Mass Index 32.08 (104.33 kg, 180.34 cm) hb 09:15 Pain Scale: Adult hb MDM: 09:10 Patient medically screened. 09:35 Differential diagnosis: flu, covid, uri. Data reviewed: vital signs, nurses notes. kb Counseling: I had a detailed discussion with the patient and/or guardian regarding the historical points, exam findings, and any diagnostic results supporting the discharge/admit diagnosis, lab results, the need for outpatient follow up, a family practitioner, to return to the emergency department if symptoms worsen or persist or if there are any questions or concerns that arise at home. 09:45 I considered the following discharge prescriptions or medication management in the emergency department I discussed and recommended Over The Counter medications, Antibiotics: At this time antibiotics are not recommended, Antivirals: At this time, antivirals are not recommended. ED course: Patient is a 28-year-old male who presents for body aches, fever, headache that started at 0300 this morning. States his fever spiked to 102 while at work so they told him he needed to come to the ER. On exam patient has even unlabored respirations, lungs clear bilaterally, no erythema or swelling to posterior pharynx, obvious malaise. Flu and COVID test completed, positive for COVID. Strep test considered but patient has no sore throat and normal posterior pharynx exam. Patient educated on results and symptomatic treatment. Stable for discharge. 12/26 09:12 Order name: Flu; Complete Time: 09:43 kb 12/26 09:12 Order name: SARS-COV-2 Antigen Rapid; Complete Time: 09:35 kb Administered Medications: 09:21 Drug: Ibuprofen PO 600 mg PO once Route: PO; hb 09:45 Follow up: Response: No adverse reaction ll1 09:27 Drug: Ondansetron PO 4 mg PO once Route: PO; hb 09:45 Follow up: Response: No adverse reaction ll1 Disposition Summary: 12/27/23 09:35 Discharge Ordered Notes: Location: Home Condition: Stable Diagnosis - SARS-associated coronavirus as the cause of diseases classified elsewhere Followup: kb - With: Emergency Department - When: As needed - Reason: Worsening of condition Followup: kb - With: Private Physician - When: 2 - 3 days - Reason: Recheck today's complaints, Continuance of care, Re-evaluation by your physician Discharge Instructions: - Discharge Summary Sheet kb - COVID-19 kb - Viral Illness, Adult kb Forms: - Work release form kb - Medication Reconciliation Form kb - Antibiotic Education kb - Prescription Opioid Use kb - Patient Portal Instructions kb - Leadership Thank You Letter kb Signatures: Dispatcher [employer] Emily Benson, WARRENC JALEEL-Tiesha Kenney, RN RN Carlton Cruz RN ll1
[2023-12-27 11:59] VITALS: O2SAT 98
[2023-12-27 12:00] VITALS: BP 128/73; TEMP 99.9
== END 2023-12-27 09:46 | disposition home or self-care (01) ==
LOC: ER 09:07
DX: U07.1 COVID-19 (principal)
CPT/HCPCS: 36415; 87804 ×2; 99283; 87811; Q0162